=== PATIENT | female | born 1930 | race Caucasian/White ===

== ENCOUNTER 2016-12-01 07:32 | Inpatient (IN) | payer MEDICARE, OTHER ==
[2016-12-01 08:16] LABS: Hematocrit 37 % (35-47); Hemoglobin 11.9 g/dl (12.0-16.0); Mean Corpuscular HGB Conc 32 g/dl (31-36); Mean Corpuscular Hemoglobin 29 pg (27-31); Mean Corpuscular Volume 91 fL (80-97); Mean Platelet Volume 9 um3 (7.4-10.4); Red Blood Count 4.06 10^6/ul (4.0-5.4); Red Cell Distribution Width 16 % (10.5-15); White Blood Count 14.7 10^3/ul (3.5-10.8)
[2016-12-01 08:27] LABS: Albumin 3.4 g/dL (3.2-5.2); BUN/Creatinine Ratio 18.1 (8-20); Calcium 9.5 mg/dL (8.6-10.3); EGFR African American 56.7 (>60); EGFR Non-African American 44.1 (>60); Globulin 3.5 g/dL (2-4); Potassium 3.8 mmol/L (3.5-5.0); Total Bilirubin 0.7 mg/dL (0.2-1.0); Total Protein 6.9 g/dL (6.4-8.9)
[2016-12-01 08:38] LABS: FIO2 15
[2016-12-01 08:40] LABS: PCO2 Arterial 47 mmHg (35-45)
--- NOTE | 2016-12-01 08:40 | RAD ---
HISTORY: Shortness of breath COMPARISONS: None VIEWS:1: Single frontal portable view of the chest at 8:18 AM FINDINGS: LINES AND TUBES: None. CARDIOMEDIASTINAL SILHOUETTE: The cardiomediastinal silhouette is normal for portable technique. PLEURA: The costophrenic angles are sharp. No pleural abnormalities are noted. LUNG PARENCHYMA: The lung volumes are low. There is patchy alveolar opacification lung bases bilaterally ABDOMEN: The upper abdomen is clear. There is no subphrenic gas. BONES AND SOFT TISSUES: No bone or soft tissue abnormalities are noted. IMPRESSION: 1. LIMITED STUDY SECONDARY TO LOW LUNG VOLUMES. 2. BIBASILAR ATELECTASIS VERSUS CONSOLIDATION
[2016-12-01] MEDS ORDERED: Levofloxacin 750 MG IVPREMIX(* 750 MG/150 ML BAG IVPB ONE (08:56)
[2016-12-01] MEDS ORDERED: Clindamycin 300 MG IVPREMIX(* 300 MG/50 ML SDV IVPB ONE (08:58)
[2016-12-01] MEDS ORDERED: NS 0.9% 1000 ML* 1,000 ML IV SCH (10:15)
[2016-12-01 11:14] LABS: Urine Bacteria Absent (Absent); Urine Bilirubin Negative (Negative); Urine Glucose Negative (Negative); Urine Nitrite Negative (Negative)
[2016-12-01] MEDS: Clindamycin 600 MG IVPREMIX(* 600 MG/50 ML SDV IV SCH ×2 (11:30→20:18)
--- NOTE | 2016-12-01 11:50 | HP ---
HISTORY AND PHYSICAL: DATE OF ADMISSION: 12/01/16 PCP: The patient is from out of town, no local PCP. CHIEF COMPLAINT: Cough, shortness of breath. HISTORY OF PRESENT ILLNESS: Ms. Patel is an 86-year-old female with a past medical history of hypertension, GERD, lower extremity DVT, AFib on Coumadin, who presents to the hospital with cough and shortness of breath. The patient lives in [place]; however, she flew in on Thursday for a graduation. She states that she was doing well Thursday, although has been having some increasing hip pain after a fall about 1 week ago. The patient went to the family graduation yesterday, which went well. On the way home, they stopped at [employer] for some ice cream. She had a large ice-cream, half of it there and half of it later in the evening after getting back to the hotel. Shortly after this, she developed a cough that was productive of thick white mucus. She felt short of breath as well. This persisted throughout the night and she had difficulty falling asleep due to her shortness of breath and cough. She denies any recent fever, chills, nausea, vomiting, abdominal pain, dysuria, diarrhea, constipation. She denies any history of swallowing issues. She came to the hospital and was found to be tachycardic and hypoxic. O2 was titrated up to 15 L nonrebreather with O2 sats in the 80s. She was seen by Respiratory Therapy and was suctioned for thick white mucus, possibly the ice-cream she had. After suction, the patient felt subjectively better, however was still requiring a fair amount of oxygen. She states that she does wear O2 at home at night at 3 L. PAST MEDICAL HISTORY: 1. AFib. 2. Lower extremity DVT. 3. GERD. 4. Hypertension. 5. On nocturnal O2. PAST SURGICAL HISTORY: None. HOME MEDICATIONS: Home medications are currently being updated in the system. ALLERGIES: She reports allergies to PENICILLIN, SULFA, and STEROID SHOTS. FAMILY HISTORY: She states she is not aware of any family history. SOCIAL HISTORY: The patient denies any history of tobacco abuse, alcohol or drug abuse. REVIEW OF SYSTEMS: A 12-point review of systems is negative except as that noted in the HPI. PHYSICAL EXAMINATION GENERAL: The patient is an elderly female, lying in bed in mild to moderate respiratory distress. VITAL SIGNS: On admission, temperature 99.5, heart rate of 108, respiratory rate of 28, O2 saturation 80% on 5 L, right now it is about 89% on 15 L mask, blood pressure is 159/44. HEENT: Pupils equal, round, and reactive to light and accommodation. Anicteric sclerae. Moist mucous membranes. Some white phlegm noted in the posterior oropharynx. LUNGS: The patient with some rhonchi in bilateral lung moore diffusely, left greater than right. Coarse breath sounds in the left as well. CARDIOVASCULAR: Tachycardic, normal rhythm. No murmurs, gallops or rubs. ABDOMEN: Soft, nontender, nondistended. Bowel sounds positive. EXTREMITIES: The patient with some mild lower extremity edema. Sherman wraps in place. Chronic venous stasis changes. NEURO: The patient is alert and oriented x3. No focal neurological deficits. SKIN: Warm, dry and well-perfused. LABS AND DIAGNOSTICS: White blood cell count of 14.7, hematocrit of 37, platelets of 290. INR of 2.81, D-dimer less than 200. ABG - pH of 7.38, pCO2 of 47, pO2 of 51, bicarb of 26. Sodium 143, potassium 3.8, chloride of 105, carbon dioxide of 28, BUN 21, creatinine 1.16, glucose of 160, lactic acid of 1.5, LFTs within normal limits. Troponin is 0.00. CRP of 47.99. Chest x-ray, personally reviewed, shows poor study with very low lung volumes, read as possible bibasilar atelectasis versus consolidation. EKG shows sinus tachycardia, did not appreciate any ischemic changes. ASSESSMENT AND PLAN: Acute hypoxic respiratory failure secondary to aspiration pneumonia in an 86-year-old female with a past medical history of hypertension, AFib, on Coumadin, deep vein thrombosis, gastroesophageal reflux disease, and need for nocturnal oxygen. 1. Acute hypoxic respiratory failure secondary to aspiration pneumonia. The patient is currently on 15 L Oxy-Mask. We will get the patient up to the ICU. We will call Respiratory to come put the patient on Vapotherm to see if we can increase her oxygen saturations. The patient received Levaquin and clindamycin in the emergency department. We will continue the patient on clindamycin 600 mg IV every 8 hours. Wean the patient's oxygen as tolerated. Will order swallow eval. 2. Hip pain. The patient was going to go to x-ray in the emergency department. However, I would prefer to wait until she settles in the ICU and the oxygen is stabilized before moving her for a non-emergent x-ray. We will continue the patient's home pain medications for now. She has been in the wheelchair for the most part since she came to [place]. 3. Atrial fibrillation. We will continue the patient's home Cardizem and Coumadin, monitor the patient's INR. 4. Hypertension. Hold the patient's home lisinopril for now. 5. DVT prophylaxis. Warfarin. 6. Code status. Reviewed with the patient. She wishes to be a full code for now and would want to be intubated if necessary. TIME SPENT: Total time spent on this admission, 55 minutes, with over half the time spent [id number] with the patient in counseling and coordinating care. [id number]/CPS #: [id number] MTDD
--- NOTE | 2016-12-01 12:43 | ED ---
Ulysses Posadas Auryana, scribed for Mustapha Contreras MD on 12/01/16 at 0827 . Shortness of Breath - HPI Summary HPI Summary: 86 year old female BIBA with SOB starting last night. She also has a cough, but denies any chest pain. 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 Family reports that she had a recent 4 hour plane ride 2 days ago. (+) blod thinner (Warfarin). Family reports that she had a recent fall a few days ago but refused to go to the hospital even with ambulance on site that day-patient reports hip pain but denies head injury with fall. She is on nightly home O2. PMHx is significant for atrial fibrillation. - History of Current Complaint Time Seen by Provider: 12/01/16 07:40 Hx Obtained From: Patient Timing: Constant Current Severity: Mild Dyspnea At: Rest Alleviating Factors: Bronchodilators - PRINCIPAL ADMINISTRATIVE CLERK - MILDLY Associated Signs & Symptoms: Cough (Nonproductive), Wheezing Related History: Recent Trauma - family states - fall few days ago - hip pain/ issues but no head injury - denied medical care at that time - Allergy/Home Medications Allergies/Adverse Reactions: Allergies Allergy/AdvReac Type Severity Reaction Status Date / Time Penicillins Allergy Rash Verified 12/01/16 08:09 Sulfa Antibiotics Allergy Rash Verified 12/01/16 08:09 Home Medications: Home Medications Cardizem 240 mg PO DAILY 12/01/16 [History Confirmed 12/01/16] Calcium 500/Vitamin D 500-125 mg-Unit 1 mg PO DAILY 12/01/16 [History Confirmed 12/01/16] Cardizem 120 MG TAB 120 mg PO BEDTIME 12/01/16 [History Confirmed 12/01/16] Centrum 1 cap PO DAILY 12/01/16 [History Confirmed 12/01/16] Coumadin 5 mg PO BEDTIME 12/01/16 [History Confirmed 12/01/16] Lisinopril 10 mg PO DAILY 12/01/16 [History Confirmed 12/01/16] Vicodin 5-300 mg 5 - 300 mg PO Q6HR 12/01/16 [History Confirmed 12/01/16] PMH/Surg Hx/FS Hx/Imm Hx Endocrine/Hematology History: Denies: Hx Diabetes Cardiovascular History: Reports: Hx Atrial Fibrillation Denies: Hx Hypercholesterolemia, Hx Hypotension - Family History Known Family History: Positive: None - healthy family history per family - Social History Occupation: Employed Full-time Lives: Alone Alcohol Use: None Hx Substance Use: No Substance Use Type: Reports: None Hx Tobacco Use: No Smoking Status (MU): Never Smoked Tobacco Review of Systems Constitutional: Negative Eyes: Negative ENT: Negative Cardiovascular: Negative Negative: Chest Pain Positive: Shortness Of Breath, Cough Gastrointestinal: Negative Genitourinary: Negative Positive: Arthralgia - reports hip pain s/p fall a few days ago Skin: Negative Neurological: Negative Psychological: Normal All Other Systems Reviewed And Are Negative: Yes Physical Exam - Summary Physical Exam Summary: VITAL SIGNS: Reviewed. GENERAL: Patient is an elderly, seemingly fragile and ill looking female who is lying comfortable in the stretcher. Patient is is mild acute respiratory distress. HEAD AND FACE: No signs of trauma. ~No ecchymosis, hematomas or skull depressions. No sinus tenderness. EYES: PERRLA, EOMI x 2, No injected conjunctiva, no nystagmus. EARS: Hearing grossly intact. Ear canals and tympanic membranes are within normal limits. MOUTH: Oropharynx within normal limits. NECK: Supple, trachea is midline, no adenopathy, no JVD, no carotid bruit, no c- spine tenderness, neck with full ROM. CHEST: Symmetric, no tenderness at palpation LUNGS: No wheezing. Crackles in the bases. CVS: Regular rate and rhythm, S1 and S2 present, no murmurs or gallops appreciated. Distant heart sounds. ABDOMEN: Soft, non-tender. No signs of distention. No rebound no guarding, and no masses palpated. Bowel sounds are normal. EXTREMITIES: FROM in all major joints, no edema, no cyanosis or clubbing. Bilateral extremity bandages secondary to healing ulcers. No edema. NEURO: Alert and oriented x 3. No acute neurological deficits. Speech is normal and follows commands. SKIN: Dry and warm Triage Information Reviewed: Yes Vital Signs On Initial Exam: Initial Vitals Temp Pulse Resp BP Pulse Ox 99.5 F 108 28 159/44 80 12/01/16 07:43 12/01/16 07:43 12/01/16 07:43 12/01/16 07:43 12/01/16 07:43 Vital Signs Reviewed: Yes Musculoskeletal: Positive: Strength/ROM Intact Neurological: Positive: Sensory/Motor Intact, Alert, Oriented to Person Place, Time Psychiatric: Positive: Affect/Mood Appropriate Diagnostics - Vital Signs Vital Signs Temp Pulse Resp BP Pulse Ox 12/01/16 07:43 99.5 F 108 28 159/44 80 - Laboratory Lab Results: Lab Results 12/01/16 12/01/16 12/01/16 Range/Units 08:00 08:00 08:00 WBC 14.7 H (3.5-10.8) 10^3/ul RBC 4.06 (4.0-5.4) 10^6/ul Hgb 11.9 L (12.0-16.0) g/dl Hct 37 (35-47) % MCV 91 (80-97) fL MCH 29 (27-31) pg MCHC 32 (31-36) g/dl RDW 16 H (10.5-15) % Plt Count 290 (150-450) 10^3/ul MPV 9 (7.4-10.4) um3 Neut % (Auto) 84.9 H (38-83) % Lymph % (Auto) 9.2 L (25-47) % Mariposa % (Auto) 4.6 (1-9) % Eos % (Auto) 0.3 (0-6) % Baso % (Auto) 1.0 (0-2) % Absolute Neuts (auto) 12.5 H (1.5-7.7) 10^3/ul Absolute Lymphs (auto) 1.4 (1.0-4.8) 10^3/ul Absolute Monos (auto) 0.7 (0-0.8) 10^3/ul Absolute Eos (auto) 0 (0-0.6) 10^3/ul Absolute Basos (auto) 0.1 (0-0.2) 10^3/ul Absolute Nucleated RBC 0 10^3/ul Nucleated RBC % 0 INR (Anticoag Therapy) (0.89-1.11) APTT (26.0-36.3) seconds D-Dimer, Quantitative (Less Than 230) ng/mL Patient Temperature ABG pH (7.35-7.45) ABG pCO2 (35-45) mmHg ABG pO2 (80-100) mmHg ABG HCO3 (19-31) mmol/L ABG O2 Saturation (95-98) % ABG Base Excess (-2.0-2.0) Respiration Rate Ventilator Type Vent Mode FiO2 Inspiratory Time PEEP Pressure Support Pressure Control EPAP IPAP BiPAP Sodium 143 (133-145) mmol/L Potassium 3.8 (3.5-5.0) mmol/L Chloride 105 (101-111) mmol/L Carbon Dioxide 28 (22-32) mmol/L Anion Gap 10 (2-11) mmol/L BUN 21 (6-24) mg/dL Creatinine 1.16 H (0.51-0.95) mg/dL Est GFR ( Amer) 56.7 (>60) Est GFR (Non-Af Amer) 44.1 (>60) BUN/Creatinine Ratio 18.1 (8-20) Glucose 160 H (70-100) mg/dL Lactic Acid 1.2 (0.5-2.0) mmol/L Calcium 9.5 (8.6-10.3) mg/dL Total Bilirubin 0.70 (0.2-1.0) mg/dL AST 18 (13-39) U/L ALT 15 (7-52) U/L Alkaline Phosphatase 93 (34-104) U/L CK-MB (CK-2) 2.5 (0.6-6.3) ng/mL Troponin I 0.00 (<0.04) ng/mL C-Reactive Protein (< 5.00) mg/L B-Natriuretic Peptide ( - 100) pg/mL Total Protein 6.9 (6.4-8.9) g/dL Albumin 3.4 (3.2-5.2) g/dL Globulin 3.5 (2-4) g/dL Albumin/Globulin Ratio 1.0 (1-3) 12/01/16 12/01/16 12/01/16 Range/Units 08:00 08:00 08:00 WBC (3.5-10.8) 10^3/ul RBC (4.0-5.4) 10^6/ul Hgb (12.0-16.0) g/dl Hct (35-47) % MCV (80-97) fL MCH (27-31) pg MCHC (31-36) g/dl RDW (10.5-15) % Plt Count (150-450) 10^3/ul MPV (7.4-10.4) um3 Neut % (Auto) (38-83) % Lymph % (Auto) (25-47) % Mariposa % (Auto) (1-9) % Eos % (Auto) (0-6) % Baso % (Auto) (0-2) % Absolute Neuts (auto) (1.5-7.7) 10^3/ul Absolute Lymphs (auto) (1.0-4.8) 10^3/ul Absolute Monos (auto) (0-0.8) 10^3/ul Absolute Eos (auto) (0-0.6) 10^3/ul Absolute Basos (auto) (0-0.2) 10^3/ul Absolute Nucleated RBC 10^3/ul Nucleated RBC % INR (Anticoag Therapy) 2.81 H (0.89-1.11) APTT 37.3 H (26.0-36.3) seconds D-Dimer, Quantitative < 200 (Less Than 230) ng/mL Patient Temperature ABG pH (7.35-7.45) ABG pCO2 (35-45) mmHg ABG pO2 (80-100) mmHg ABG HCO3 (19-31) mmol/L ABG O2 Saturation (95-98) % ABG Base Excess (-2.0-2.0) Respiration Rate Ventilator Type Vent Mode FiO2 Inspiratory Time PEEP Pressure Support Pressure Control EPAP IPAP BiPAP Sodium (133-145) mmol/L Potassium (3.5-5.0) mmol/L Chloride (101-111) mmol/L Carbon Dioxide (22-32) mmol/L Anion Gap (2-11) mmol/L BUN (6-24) mg/dL Creatinine (0.51-0.95) mg/dL Est GFR ( Amer) (>60) Est GFR (Non-Af Amer) (>60) BUN/Creatinine Ratio (8-20) Glucose (70-100) mg/dL Lactic Acid (0.5-2.0) mmol/L Calcium (8.6-10.3) mg/dL Total Bilirubin (0.2-1.0) mg/dL AST (13-39) U/L ALT (7-52) U/L Alkaline Phosphatase (34-104) U/L CK-MB (CK-2) (0.6-6.3) ng/mL Troponin I (<0.04) ng/mL C-Reactive Protein 47.99 H (< 5.00) mg/L B-Natriuretic Peptide 78 ( - 100) pg/mL Total Protein (6.4-8.9) g/dL Albumin (3.2-5.2) g/dL Globulin (2-4) g/dL Albumin/Globulin Ratio (1-3) //17 Range/Units 08:30 WBC (3.5-10.8) 10^3/ul RBC (4.0-5.4) 10^6/ul Hgb (12.0-16.0) g/dl Hct (35-47) % MCV (80-97) fL MCH (27-31) pg MCHC (31-36) g/dl RDW (10.5-15) % Plt Count (150-450) 10^3/ul MPV (7.4-10.4) um3 Neut % (Auto) (38-83) % Lymph % (Auto) (25-47) % Mariposa % (Auto) (1-9) % Eos % (Auto) (0-6) % Baso % (Auto) (0-2) % Absolute Neuts (auto) (1.5-7.7) 10^3/ul Absolute Lymphs (auto) (1.0-4.8) 10^3/ul Absolute Monos (auto) (0-0.8) 10^3/ul Absolute Eos (auto) (0-0.6) 10^3/ul Absolute Basos (auto) (0-0.2) 10^3/ul Absolute Nucleated RBC 10^3/ul Nucleated RBC % INR (Anticoag Therapy) (0.89-1.11) APTT (26.0-36.3) seconds D-Dimer, Quantitative (Less Than 230) ng/mL Patient Temperature Not Reportable ABG pH 7.38 (7.35-7.45) ABG pCO2 47 H (35-45) mmHg ABG pO2 51 L* (80-100) mmHg ABG HCO3 26.4 (19-31) mmol/L ABG O2 Saturation 90.9 L (95-98) % ABG Base Excess 2.1 H (-2.0-2.0) Respiration Rate Not Reportable Ventilator Type Not Reportable Vent Mode Not Reportable FiO2 15 Inspiratory Time Not Reportable PEEP Not Reportable Pressure Support Not Reportable Pressure Control Not Reportable EPAP Not Reportable IPAP Not Reportable BiPAP Not Reportable Sodium (133-145) mmol/L Potassium (3.5-5.0) mmol/L Chloride (101-111) mmol/L Carbon Dioxide (22-32) mmol/L Anion Gap (2-11) mmol/L BUN (6-24) mg/dL Creatinine (0.51-0.95) mg/dL Est GFR ( Amer) (>60) Est GFR (Non-Af Amer) (>60) BUN/Creatinine Ratio (8-20) Glucose (70-100) mg/dL Lactic Acid (0.5-2.0) mmol/L Calcium (8.6-10.3) mg/dL Total Bilirubin (0.2-1.0) mg/dL AST (13-39) U/L ALT (7-52) U/L Alkaline Phosphatase (34-104) U/L CK-MB (CK-2) (0.6-6.3) ng/mL Troponin I (<0.04) ng/mL C-Reactive Protein (< 5.00) mg/L B-Natriuretic Peptide ( - 100) pg/mL Total Protein (6.4-8.9) g/dL Albumin (3.2-5.2) g/dL Globulin (2-4) g/dL Albumin/Globulin Ratio (1-3) Result Diagrams: 12/01/16 08:00 12/01/16 08:00 Lab Statement: Any lab studies that have been ordered have been reviewed, and results considered in the medical decision making process. - Radiology CXR Xray Interpretation: Positive (See Comments) - IMPRESSION: 1. LIMITED STUDY SECONDARY TO LOW LUNG VOLUMES. 2. BIBASILAR ATELECTASIS VERSUS CONSOLIDATION Radiology Interpretation Completed By: Radiologist - EKG 07:43 EKG Interpretation: sinus tachycardia at 108 BPM, no ST elevation Re-Evaluation - Re-Evaluation First Eval Re-Evaluation Time: 09:19 - discussed labs, imaging, and [place] [facility] [place]Dx - Course Course Of Treatment: 86 year old female BIBA with SOB starting last night. She also has a cough, but denies any chest pain. 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 Family reports that she had a recent 4 hour plane ride 2 days ago. (+) blod thinner (Warfarin). Family reports that she had a recent fall a few days ago but refused to go to the hospital even with ambulance on site that day-patient reports hip pain but denies head injury with fall. She is on nightly home O2. PMHx is significant for atrial fibrillation. Assessment/Plan: Test results WBC 14.7 w/o bands, INR 2.81, D-dimer <200. ABG: pH 7.38, PCO2 47, PO2 51, O2 sat 90.9. Creatinine 1.16, Glucose 160, CRP 7.9. CXR - IMPRESSION: 1. LIMITED STUDY SECONDARY TO LOW LUNG VOLUMES. 2. BIBASILAR ATELECTASIS VERSUS CONSOLIDATION. EKG - sinus tachycardia at 108 BPM , no ST elevation. ED course patient sat started at 81 therefore patient was placed on a non-rebreathing mask. Right now, O2 saturation 86-88 %. We suctioned 2 pieces of cake from her throat and right now patient is saturation 91-92 %. She reports that she is feeling better and is able to breath. I believe patient has an aspiration pneumonitis; therefore patient was placed on Levaquin and Clindamycin. Dr. Salazar consulted on admission and agrees to admit [place] [facility] [place] Salazar and I have opted not to intubate the patient at this time since she is improving at this time. - Diagnoses Differential Diagnosis/HQI/PQRI: Positive: Pulmonary Embolism, Other - Aspiration Provider Diagnoses: Aspiration pneumonitis - Physician Notifications Discussed Care of Patient With: Dr. Salazar Time Discussed With Above Provider: 09:03 - agrees with admission Instructed by Provider To: Admit As Inpatient Discharge - Discharge Plan Condition: Stable Disposition: ADMITTED TO [facility] The documentation as recorded by the Ulysses melo Auryana accurately reflects the service I personally performed and the decisions made by me, Mustapha Contreras MD.
--- NOTE | 2016-12-01 14:40 | RAD ---
HISTORY: Fall, hip pain COMPARISONS: None VIEWS: 4, frontal and crosstable lateral views of the left hip FINDINGS: BONE DENSITY: Normal. BONES: There is no displaced fracture. JOINTS: There is no arthropathy. ALIGNMENT: There is no dislocation. SOFT TISSUES: Unremarkable. OTHER FINDINGS: None. IMPRESSION: NO RADIOGRAPHIC EVIDENCE FOR HIP FRACTURE. X-RAYS MAY BE NEGATIVE WITH NONDISPLACED HIP FRACTURE, IF THERE IS PERSISTENT CLINICAL CONCERN, RECOMMEND CONSIDERATION OF MRI. IN THE SETTING OF CONTRAINDICATION TO MRI OR LIMITATION IN EMERGENT ACCESS TO MRI, CT WOULD BE SUGGESTED.
[2016-12-01] MEDS: HYDROcodone/ACETAMIN 5-325 MG* 1 TAB PO PRN ×2 (15:58→22:20)
[2016-12-01] MEDS ORDERED: Warfarin TAB(*) 5 MG PO SCH (17:00)
[2016-12-01] MEDS ORDERED: CARDIZEM 120 MG PO SCH (21:00)
[2016-12-01] MEDS: Diltiazem CD CAP* 120 MG PO SCH (22:20)
[2016-12-02] MEDS: Clindamycin 600 MG IVPREMIX(* 600 MG/50 ML SDV IV SCH ×3 (04:07→20:08)
[2016-12-02 06:10] LABS: Hematocrit 32 % (35-47); Hemoglobin 10.4 g/dl (12.0-16.0); Mean Corpuscular HGB Conc 32 g/dl (31-36); Mean Corpuscular Hemoglobin 30 pg (27-31); Mean Corpuscular Volume 91 fL (80-97); Mean Platelet Volume 10 um3 (7.4-10.4); Red Blood Count 3.53 10^6/ul (4.0-5.4); Red Cell Distribution Width 16 % (10.5-15); White Blood Count 15.8 10^3/ul (3.5-10.8)
[2016-12-02 06:23] LABS: BUN/Creatinine Ratio 18.2 (8-20); Calcium 9.4 mg/dL (8.6-10.3); EGFR African American 60.3 (>60); EGFR Non-African American 46.9 (>60); Potassium 4.7 mmol/L (3.5-5.0)
[2016-12-02] MEDS: Azithromycin IV(*) 500 MG in NS 0.9% 250 ML* 250 ML IVPB SCH (07:55)
[2016-12-02] MEDS: Diltiazem CD CAP* 240 MG PO SCH (07:55)
--- NOTE | 2016-12-02 08:08 | RAD ---
Indication: Acute hypoxic respiratory failure. Aspiration pneumonia. Comparison: December 01, 2016 Technique: Upright AP 0740 hours Report: Large body habitus limits assessment. Unchanged moderately severe elevation of the RIGHT hemidiaphragm. Associated partial atelectasis of the RIGHT lung with interval improvement. Alveolar consolidation in the LEFT mid to lower lung zone without significant volume loss is suspicious for pneumonia. Negative for cardiomegaly. Grossly unremarkable central pulmonary vasculature. IMPRESSION: Mild interval improvement in LEFT lung alveolar consolidation concerning for pneumonia.
[2016-12-02] MEDS ORDERED: DILTIAZEM 240 MG PO SCH (09:00)
[2016-12-02] MEDS ORDERED: Lisinopril TAB* 10 MG PO SCH (09:00)
--- NOTE | 2016-12-02 14:25 | PN ---
Subjective Date of Service: 12/02/16 Interval History: pt feels better. Coughing up brown colored sputum . she fell approx 1 weeks ago and bruised left leg. Objective Active Medications: Hydrocodone Bitart/Acetaminophen ([place] 5-325 Tab*) 1 tab PO Q4H PRN PRN Reason: PAIN Last Admin: 12/01/16 22:20 Dose: 1 tab Diltiazem HCl (Cardizem Cd Cap*) 120 mg PO BEDTIME [facility] Last Admin: 12/01/16 22:20 Dose: 120 mg Diltiazem HCl (Cardizem Cd Cap*) 240 mg PO DAILY [facility] Last Admin: 12/02/16 07:55 Dose: 240 mg Clindamycin HCl/Dextrose (Cleocin 600 Mg Ivpremix(*) Sdv) 600 mg in 50 mls @ 100 mls/hr IV 0330,1130,1930 [facility] Last Admin: 12/02/16 10:41 Dose: 100 mls/hr Sodium Chloride (Ns 0.9% 1000 Ml*) 1,000 mls @ 100 mls/hr IV PER RATE [facility] Azithromycin 500 mg/ Sodium (Chloride) 250 mls @ 250 mls/hr IVPB Q24H [facility] Last Admin: 12/02/16 07:55 Dose: 250 mls/hr Pharmacy Profile Note (Coumadin Daily Reminder*) 1 note FOLLOW UP 1700 [facility] Vital Signs 12/01/16 12/01/16 12/01/16 14:22 15:00 15:20 Temperature Pulse Rate 101 100 Respiratory 23 20 20 Rate Blood Pressure 140/61 122/72 (mmHg) O2 Sat by Pulse 94 92 Oximetry 12/01/16 12/01/16 12/01/16 15:26 15:30 15:59 Temperature 100.0 F Pulse Rate Respiratory 25 22 Rate Blood Pressure (mmHg) O2 Sat by Pulse Oximetry 12/01/16 12/01/16 12/01/16 16:00 16:56 17:00 Temperature Pulse Rate 100 98 Respiratory 23 20 25 Rate Blood Pressure 115/57 134/62 (mmHg) O2 Sat by Pulse 91 94 Oximetry 12/01/16 12/01/16 12/01/16 17:48 18:00 19:00 Temperature Pulse Rate 91 88 Respiratory 22 20 19 Rate Blood Pressure 134/57 112/50 (mmHg) O2 Sat by Pulse 94 93 Oximetry 12/01/16 12/01/16 12/01/16 20:00 21:00 22:00 Temperature 99.3 F Pulse Rate 92 85 Respiratory 25 18 19 Rate Blood Pressure 118/50 121/57 (mmHg) O2 Sat by Pulse 94 94 Oximetry 12/01/16 12/01/16 12/02/16 23:00 23:20 00:00 Temperature 99.2 F Pulse Rate 79 79 80 Respiratory 18 17 19 Rate Blood Pressure 110/43 (mmHg) O2 Sat by Pulse 92 92 92 Oximetry 12/02/16 12/02/16 12/02/16 00:01 01:00 02:00 Temperature Pulse Rate 81 82 80 Respiratory 21 20 18 Rate Blood Pressure 113/49 124/55 113/43 (mmHg) O2 Sat by Pulse 92 96 92 Oximetry 12/02/16 12/02/16 12/02/16 03:00 03:58 04:00 Temperature 99 F Pulse Rate 84 75 Respiratory 17 18 Rate Blood Pressure 121/44 124/46 (mmHg) O2 Sat by Pulse 96 95 Oximetry 12/02/16 12/02/16 12/02/16 05:00 06:00 07:00 Temperature Pulse Rate 69 75 67 Respiratory 17 21 16 Rate Blood Pressure 104/40 113/53 107/52 (mmHg) O2 Sat by Pulse 93 93 94 Oximetry 12/02/16 12/02/16 12/02/16 07:18 08:00 08:06 Temperature Pulse Rate 75 Respiratory 30 18 20 Rate Blood Pressure 115/49 (mmHg) O2 Sat by Pulse 95 Oximetry 12/02/16 12/02/16 12/02/16 08:07 09:00 09:16 Temperature 99.2 F Pulse Rate 74 Respiratory 19 22 Rate Blood Pressure 114/50 (mmHg) O2 Sat by Pulse 97 Oximetry 12/02/16 12/02/16 12/02/16 10:00 10:24 10:38 Temperature Pulse Rate 77 Respiratory 16 18 18 Rate Blood Pressure 103/44 (mmHg) O2 Sat by Pulse 90 Oximetry 12/02/16 12/02/16 12/02/16 11:00 11:23 11:39 Temperature 97.7 F Pulse Rate 79 Respiratory 18 22 Rate Blood Pressure 109/46 (mmHg) O2 Sat by Pulse 93 Oximetry 12/02/16 12/02/16 12/02/16 12:00 13:00 13:46 Temperature Pulse Rate 75 89 Respiratory 20 20 21 Rate Blood Pressure 112/44 115/65 (mmHg) O2 Sat by Pulse 96 88 Oximetry 12/02/16 14:00 Temperature Pulse Rate 85 Respiratory 23 Rate Blood Pressure 110/44 (mmHg) O2 Sat by Pulse 89 Oximetry Oxygen Devices in Use Now: High Flow Nasal Cannula - ar 15l Appearance: 86 yo F in nAd, AAOx3 Eyes: No Scleral Icterus, PERRLA Ears/Nose/Mouth/Throat: NL Teeth, Lips, Gums, Mucous Membranes Moist Neck: NL Appearance and Movements; NL JVP, Trachea Midline Respiratory: Symmetrical Chest Expansion and Respiratory Effort, Clear to Auscultation, - - crackles b/l mid lobes Cardiovascular: NL Sounds; No Murmurs; No JVD, RRR Abdominal: NL Sounds; No Tenderness; No Distention, No Hepatosplenomegaly Lymphatic: No Cervical Adenopathy Extremities: No Clubbing, Cyanosis, - - chfonic venous staisis skin changes and edema on distal b/l LE's, chronic appearing erythema on lateral left knee where a ruptured blister was noted yesterday. left thigh ecchymosis Skin: No Nodules or Sclerosis, - - see above Neurological: Alert and Oriented x 3, NL Muscle Strength and Tone Result Diagrams: 12/02/16 05:53 12/02/16 05:53 Additional Lab and Data: Lab Results 12/01/16 12/01/16 12/01/16 Range/Units 08:00 08:00 08:00 WBC 14.7 H (3.5-10.8) 10^3/ul RBC 4.06 (4.0-5.4) 10^6/ul Hgb 11.9 L (12.0-16.0) g/dl Hct 37 (35-47) % MCV 91 (80-97) fL MCH 29 (27-31) pg MCHC 32 (31-36) g/dl RDW 16 H (10.5-15) % Plt Count 290 (150-450) 10^3/ul MPV 9 (7.4-10.4) um3 Neut % (Auto) 84.9 H (38-83) % Lymph % (Auto) 9.2 L (25-47) % [place] % (Auto) 4.6 (1-9) % Eos % (Auto) 0.3 (0-6) % Baso % (Auto) 1.0 (0-2) % Absolute Neuts (auto) 12.5 H (1.5-7.7) 10^3/ul Absolute Lymphs (auto) 1.4 (1.0-4.8) 10^3/ul Absolute Monos (auto) 0.7 (0-0.8) 10^3/ul Absolute Eos (auto) 0 (0-0.6) 10^3/ul Absolute Basos (auto) 0.1 (0-0.2) 10^3/ul Absolute Nucleated RBC 0 10^3/ul Nucleated RBC % 0 INR (Anticoag Therapy) (0.89-1.11) APTT (26.0-36.3) seconds D-Dimer, Quantitative (Less Than 230) ng/mL Patient Temperature ABG pH (7.35-7.45) ABG pCO2 (35-45) mmHg ABG pO2 (80-100) mmHg ABG HCO3 (19-31) mmol/L ABG O2 Saturation (95-98) % ABG Base Excess (-2.0-2.0) Respiration Rate Ventilator Type Vent Mode FiO2 Inspiratory Time PEEP Pressure Support Pressure Control EPAP IPAP BiPAP Sodium 143 (133-145) mmol/L Potassium 3.8 (3.5-5.0) mmol/L Chloride 105 (101-111) mmol/L Carbon Dioxide 28 (22-32) mmol/L Anion Gap 10 (2-11) mmol/L BUN 21 (6-24) mg/dL Creatinine 1.16 H (0.51-0.95) mg/dL Est GFR ( Amer) 56.7 (>60) Est GFR (Non-Af Amer) 44.1 (>60) BUN/Creatinine Ratio 18.1 (8-20) Glucose 160 H (70-100) mg/dL Lactic Acid 1.2 (0.5-2.0) mmol/L Calcium 9.5 (8.6-10.3) mg/dL Total Bilirubin 0.70 (0.2-1.0) mg/dL AST 18 (13-39) U/L ALT 15 (7-52) U/L Alkaline Phosphatase 93 (34-104) U/L CK-MB (CK-2) 2.5 (0.6-6.3) ng/mL Troponin I 0.00 (<0.04) ng/mL C-Reactive Protein (< 5.00) mg/L B-Natriuretic Peptide ( - 100) pg/mL Total Protein 6.9 (6.4-8.9) g/dL Albumin 3.4 (3.2-5.2) g/dL Globulin 3.5 (2-4) g/dL Albumin/Globulin Ratio 1.0 (1-3) 12/01/16 12/01/16 12/01/16 Range/Units 08:00 08:00 08:00 WBC (3.5-10.8) 10^3/ul RBC (4.0-5.4) 10^6/ul Hgb (12.0-16.0) g/dl Hct (35-47) % MCV (80-97) fL MCH (27-31) pg MCHC (31-36) g/dl RDW (10.5-15) % Plt Count (150-450) 10^3/ul MPV (7.4-10.4) um3 Neut % (Auto) (38-83) % Lymph % (Auto) (25-47) % [place] % (Auto) (1-9) % Eos % (Auto) (0-6) % Baso % (Auto) (0-2) % Absolute Neuts (auto) (1.5-7.7) 10^3/ul Absolute Lymphs (auto) (1.0-4.8) 10^3/ul Absolute Monos (auto) (0-0.8) 10^3/ul Absolute Eos (auto) (0-0.6) 10^3/ul Absolute Basos (auto) (0-0.2) 10^3/ul Absolute Nucleated RBC 10^3/ul Nucleated RBC % INR (Anticoag Therapy) 2.81 H (0.89-1.11) APTT 37.3 H (26.0-36.3) seconds D-Dimer, Quantitative < 200 (Less Than 230) ng/mL Patient Temperature ABG pH (7.35-7.45) ABG pCO2 (35-45) mmHg ABG pO2 (80-100) mmHg ABG HCO3 (19-31) mmol/L ABG O2 Saturation (95-98) % ABG Base Excess (-2.0-2.0) Respiration Rate Ventilator Type Vent Mode FiO2 Inspiratory Time PEEP Pressure Support Pressure Control EPAP IPAP BiPAP Sodium (133-145) mmol/L Potassium (3.5-5.0) mmol/L Chloride (101-111) mmol/L Carbon Dioxide (22-32) mmol/L Anion Gap (2-11) mmol/L BUN (6-24) mg/dL Creatinine (0.51-0.95) mg/dL Est GFR ( Amer) (>60) Est GFR (Non-Af Amer) (>60) BUN/Creatinine Ratio (8-20) Glucose (70-100) mg/dL Lactic Acid (0.5-2.0) mmol/L Calcium (8.6-10.3) mg/dL Total Bilirubin (0.2-1.0) mg/dL AST (13-39) U/L ALT (7-52) U/L Alkaline Phosphatase (34-104) U/L CK-MB (CK-2) (0.6-6.3) ng/mL Troponin I (<0.04) ng/mL C-Reactive Protein 47.99 H (< 5.00) mg/L B-Natriuretic Peptide 78 ( - 100) pg/mL Total Protein (6.4-8.9) g/dL Albumin (3.2-5.2) g/dL Globulin (2-4) g/dL Albumin/Globulin Ratio (1-3) //17 Range/Units 08:30 WBC (3.5-10.8) 10^3/ul RBC (4.0-5.4) 10^6/ul Hgb (12.0-16.0) g/dl Hct (35-47) % MCV (80-97) fL MCH (27-31) pg MCHC (31-36) g/dl RDW (10.5-15) % Plt Count (150-450) 10^3/ul MPV (7.4-10.4) um3 Neut % (Auto) (38-83) % Lymph % (Auto) (25-47) % [place] % (Auto) (1-9) % Eos % (Auto) (0-6) % Baso % (Auto) (0-2) % Absolute Neuts (auto) (1.5-7.7) 10^3/ul Absolute Lymphs (auto) (1.0-4.8) 10^3/ul Absolute Monos (auto) (0-0.8) 10^3/ul Absolute Eos (auto) (0-0.6) 10^3/ul Absolute Basos (auto) (0-0.2) 10^3/ul Absolute Nucleated RBC 10^3/ul Nucleated RBC % INR (Anticoag Therapy) (0.89-1.11) APTT (26.0-36.3) seconds D-Dimer, Quantitative (Less Than 230) ng/mL Patient Temperature Not Reportable ABG pH 7.38 (7.35-7.45) ABG pCO2 47 H (35-45) mmHg ABG pO2 51 L* (80-100) mmHg ABG HCO3 26.4 (19-31) mmol/L ABG O2 Saturation 90.9 L (95-98) % ABG Base Excess 2.1 H (-2.0-2.0) Respiration Rate Not Reportable Ventilator Type Not Reportable Vent Mode Not Reportable FiO2 15 Inspiratory Time Not Reportable PEEP Not Reportable Pressure Support Not Reportable Pressure Control Not Reportable EPAP Not Reportable IPAP Not Reportable BiPAP Not Reportable Sodium (133-145) mmol/L Potassium (3.5-5.0) mmol/L Chloride (101-111) mmol/L Carbon Dioxide (22-32) mmol/L Anion Gap (2-11) mmol/L BUN (6-24) mg/dL Creatinine (0.51-0.95) mg/dL Est GFR ( Amer) (>60) Est GFR (Non-Af Amer) (>60) BUN/Creatinine Ratio (8-20) Glucose (70-100) mg/dL Lactic Acid (0.5-2.0) mmol/L Calcium (8.6-10.3) mg/dL Total Bilirubin (0.2-1.0) mg/dL AST (13-39) U/L ALT (7-52) U/L Alkaline Phosphatase (34-104) U/L CK-MB (CK-2) (0.6-6.3) ng/mL Troponin I (<0.04) ng/mL C-Reactive Protein (< 5.00) mg/L B-Natriuretic Peptide ( - 100) pg/mL Total Protein (6.4-8.9) g/dL Albumin (3.2-5.2) g/dL Globulin (2-4) g/dL Albumin/Globulin Ratio (1-3) Microbiology and Other Data: Microbiology 12/02/16 10:30 Legionella Urinary Antigen - Final Urine Negative Legionella Streptococcus pneumoniae Ag Screen - Final Negative S. pneumo Antigen 12/01/16 11:45 Nasal Screen MRSA (PCR)([facility]UN[facility]) - Final Nasal Mrsa Negative Assess/Plan/Problems-Billing Assessment: 86 yo f with h/o PAF, chronic venous stasis, scoliosis and restrictive lung disease (on nighttime 02 T 3L) presented with aspiration - Patient Problems (1) Acute respiratory failure Comment: with hypoxemia due to aspiration pneumonia cont Clindamycin, added Azithro for atypical coverage in pt who recently traveled hypoxia improving. Pt passed swallow eval (2) Atrial fibrillation Comment: paroxysmal cont Cardizem CD (3) DVT prophylaxis Comment: INR>5 today, Coumadin on hold (4) Left leg injury Comment: s/p fall 1 week prior to admission. no fx on XRay cont PT (5) Restrictive airway disease Comment: due to scoliosis, on nightime 02 at 3 l at home Likely will need 02 continuously at d/c
[2016-12-02] MEDS: Diltiazem CD CAP* 120 MG PO SCH (20:12)
[2016-12-02] MEDS: HYDROcodone/ACETAMIN 5-325 MG* 1 TAB PO PRN (22:42)
[2016-12-03] MEDS: Clindamycin 600 MG IVPREMIX(* 600 MG/50 ML SDV IV SCH ×2 (03:03→20:07)
[2016-12-03 06:13] LABS: Hematocrit 31 % (35-47); Hemoglobin 9.9 g/dl (12.0-16.0); Mean Corpuscular HGB Conc 32 g/dl (31-36); Mean Corpuscular Hemoglobin 29 pg (27-31); Mean Corpuscular Volume 91 fL (80-97); Mean Platelet Volume 9 um3 (7.4-10.4); Red Blood Count 3.39 10^6/ul (4.0-5.4); Red Cell Distribution Width 15 % (10.5-15); White Blood Count 14.5 10^3/ul (3.5-10.8)
[2016-12-03] MEDS: Azithromycin IV(*) 500 MG in NS 0.9% 250 ML* 250 ML IVPB SCH (09:50)
[2016-12-03] MEDS: Diltiazem CD CAP* 240 MG PO SCH (09:50)
[2016-12-03] MEDS ORDERED: Phytonadione Oral Solution* 5 MG/25 ML UDC PO ONE (09:59)
--- NOTE | 2016-12-03 15:35 | PN ---
Subjective Date of Service: 12/03/16 Interval History: pt was back on Vapotherm this AM Objective Active Medications: Hydrocodone Bitart/Acetaminophen ([place] 5-325 Tab*) 1 tab PO Q4H PRN PRN Reason: PAIN Last Admin: 12/02/16 22:42 Dose: 1 tab Diltiazem HCl (Cardizem Cd Cap*) 120 mg PO BEDTIME [facility] Last Admin: 12/02/16 20:12 Dose: 120 mg Diltiazem HCl (Cardizem Cd Cap*) 240 mg PO DAILY [facility] Last Admin: 12/03/16 09:50 Dose: 240 mg Clindamycin HCl/Dextrose (Cleocin 600 Mg Ivpremix(*) Sdv) 600 mg in 50 mls @ 100 mls/hr IV 0330,1130,1930 [facility] Last Admin: 12/03/16 03:03 Dose: 100 mls/hr Azithromycin 500 mg/ Sodium (Chloride) 250 mls @ 250 mls/hr IVPB Q24H [facility] Last Admin: 12/03/16 09:50 Dose: 250 mls/hr Pharmacy Profile Note (Coumadin Daily Reminder*) 1 note FOLLOW UP 1700 [facility] Last Admin: 12/02/16 16:03 Dose: 1 note Vital Signs 12/02/16 12/02/16 12/02/16 15:49 16:00 16:06 Temperature 98.1 F Pulse Rate Respiratory 20 20 Rate Blood Pressure 126/47 (mmHg) O2 Sat by Pulse Oximetry 12/02/16 12/02/16 12/02/16 17:00 17:11 17:45 Temperature Pulse Rate Respiratory 24 21 Rate Blood Pressure 116/42 (mmHg) O2 Sat by Pulse Oximetry 12/02/16 12/02/16 12/02/16 18:00 19:00 19:10 Temperature Pulse Rate 75 81 Respiratory 19 21 18 Rate Blood Pressure 122/54 111/46 (mmHg) O2 Sat by Pulse 90 87 Oximetry 12/02/16 12/02/16 12/02/16 20:00 20:01 21:00 Temperature 99.2 F Pulse Rate 88 86 81 Respiratory 28 23 17 Rate Blood Pressure 129/53 (mmHg) O2 Sat by Pulse 86 87 90 Oximetry 12/02/16 12/02/16 12/02/16 21:02 22:00 22:40 Temperature Pulse Rate 84 84 Respiratory 22 21 19 Rate Blood Pressure 108/52 124/50 (mmHg) O2 Sat by Pulse 91 89 Oximetry 12/02/16 12/02/16 12/03/16 23:00 23:38 00:00 Temperature 99.5 F Pulse Rate 86 79 Respiratory 21 18 Rate Blood Pressure 131/58 (mmHg) O2 Sat by Pulse 90 91 Oximetry 12/03/16 12/03/16 12/03/16 00:01 00:07 00:30 Temperature Pulse Rate 74 72 66 Respiratory 18 18 17 Rate Blood Pressure 107/46 (mmHg) O2 Sat by Pulse 89 88 89 Oximetry 12/03/16 12/03/16 12/03/16 00:53 01:00 01:30 Temperature Pulse Rate 68 66 Respiratory 17 18 17 Rate Blood Pressure 99/46 (mmHg) O2 Sat by Pulse 90 91 Oximetry 12/03/16 12/03/16 12/03/16 02:00 02:30 03:00 Temperature Pulse Rate 67 67 86 Respiratory 17 17 20 Rate Blood Pressure 102/45 99/48 (mmHg) O2 Sat by Pulse 90 89 85 Oximetry 12/03/16 12/03/16 12/03/16 03:22 03:30 03:51 Temperature 99.2 F Pulse Rate 73 Respiratory 17 19 Rate Blood Pressure (mmHg) O2 Sat by Pulse 90 Oximetry 12/03/16 12/03/16 12/03/16 04:00 04:30 04:58 Temperature Pulse Rate 68 65 66 Respiratory 17 17 17 Rate Blood Pressure 105/44 (mmHg) O2 Sat by Pulse 91 91 90 Oximetry 12/03/16 12/03/16 12/03/16 05:30 05:51 06:00 Temperature Pulse Rate 72 74 Respiratory 18 18 20 Rate Blood Pressure 112/46 (mmHg) O2 Sat by Pulse 92 89 Oximetry 12/03/16 12/03/16 12/03/16 06:15 06:30 06:45 Temperature Pulse Rate 71 66 65 Respiratory 15 19 19 Rate Blood Pressure (mmHg) O2 Sat by Pulse 93 Oximetry 12/03/16 12/03/16 12/03/16 06:46 07:00 07:15 Temperature Pulse Rate 67 66 Respiratory 18 18 17 Rate Blood Pressure 107/44 (mmHg) O2 Sat by Pulse 86 86 Oximetry 12/03/16 12/03/16 12/03/16 07:30 07:45 08:00 Temperature 99.2 F Pulse Rate 73 66 65 Respiratory 22 20 16 Rate Blood Pressure 101/47 (mmHg) O2 Sat by Pulse 92 86 87 Oximetry 12/03/16 12/03/16 12/03/16 08:15 08:30 08:45 Temperature Pulse Rate 66 85 83 Respiratory 19 23 25 Rate Blood Pressure (mmHg) O2 Sat by Pulse 86 86 90 Oximetry 12/03/16 12/03/16 12/03/16 09:00 09:01 09:15 Temperature Pulse Rate 80 86 83 Respiratory 17 19 24 Rate Blood Pressure 106/69 (mmHg) O2 Sat by Pulse 92 91 94 Oximetry 12/03/16 12/03/16 12/03/16 09:30 09:45 10:00 Temperature Pulse Rate 75 73 77 Respiratory 19 22 22 Rate Blood Pressure 120/60 (mmHg) O2 Sat by Pulse 95 96 94 Oximetry 12/03/16 12/03/16 12/03/16 10:15 10:30 10:45 Temperature Pulse Rate 79 82 80 Respiratory 26 21 23 Rate Blood Pressure (mmHg) O2 Sat by Pulse 95 97 94 Oximetry 12/03/16 12/03/16 12/03/16 11:00 11:15 11:30 Temperature Pulse Rate 74 85 74 Respiratory 21 20 25 Rate Blood Pressure (mmHg) O2 Sat by Pulse 94 93 95 Oximetry 12/03/16 12/03/16 12/03/16 11:35 11:45 12:00 Temperature 100.3 F Pulse Rate 80 77 Respiratory 22 21 Rate Blood Pressure (mmHg) O2 Sat by Pulse 94 96 Oximetry 12/03/16 12/03/16 12/03/16 12:15 12:17 12:30 Temperature Pulse Rate 73 87 70 Respiratory 19 25 19 Rate Blood Pressure 111/55 (mmHg) O2 Sat by Pulse 96 95 97 Oximetry 12/03/16 12/03/16 12:45 13:00 Temperature Pulse Rate 78 67 Respiratory 25 22 Rate Blood Pressure (mmHg) O2 Sat by Pulse 94 94 Oximetry Oxygen Devices in Use Now: High Flow Nasal Cannula - Vapotherm at 25L Appearance: 86 yo F in NAD, AAOx3 Eyes: No Scleral Icterus, PERRLA Ears/Nose/Mouth/Throat: NL Teeth, Lips, Gums, Mucous Membranes Moist Neck: NL Appearance and Movements; NL JVP, Trachea Midline Respiratory: Symmetrical Chest Expansion and Respiratory Effort, - - RLL crackles Cardiovascular: NL Sounds; No Murmurs; No JVD, RRR Abdominal: NL Sounds; No Tenderness; No Distention Lymphatic: No Cervical Adenopathy Extremities: No Clubbing, Cyanosis, - - +1 pedal edema , venous stasis changed on b/l LE's Skin: No Nodules or Sclerosis Neurological: Alert and Oriented x 3, NL Muscle Strength and Tone Result Diagrams: 12/03/16 05:55 12/02/16 05:53 Additional Lab and Data: Lab Results 12/01/16 12/01/16 12/01/16 Range/Units 08:00 08:00 08:00 WBC 14.7 H (3.5-10.8) 10^3/ul RBC 4.06 (4.0-5.4) 10^6/ul Hgb 11.9 L (12.0-16.0) g/dl Hct 37 (35-47) % MCV 91 (80-97) fL MCH 29 (27-31) pg MCHC 32 (31-36) g/dl RDW 16 H (10.5-15) % Plt Count 290 (150-450) 10^3/ul MPV 9 (7.4-10.4) um3 Neut % (Auto) 84.9 H (38-83) % Lymph % (Auto) 9.2 L (25-47) % [place] % (Auto) 4.6 (1-9) % Eos % (Auto) 0.3 (0-6) % Baso % (Auto) 1.0 (0-2) % Absolute Neuts (auto) 12.5 H (1.5-7.7) 10^3/ul Absolute Lymphs (auto) 1.4 (1.0-4.8) 10^3/ul Absolute Monos (auto) 0.7 (0-0.8) 10^3/ul Absolute Eos (auto) 0 (0-0.6) 10^3/ul Absolute Basos (auto) 0.1 (0-0.2) 10^3/ul Absolute Nucleated RBC 0 10^3/ul Nucleated RBC % 0 INR (Anticoag Therapy) (0.89-1.11) APTT (26.0-36.3) seconds D-Dimer, Quantitative (Less Than 230) ng/mL Patient Temperature ABG pH (7.35-7.45) ABG pCO2 (35-45) mmHg ABG pO2 (80-100) mmHg ABG HCO3 (19-31) mmol/L ABG O2 Saturation (95-98) % ABG Base Excess (-2.0-2.0) Respiration Rate Ventilator Type Vent Mode FiO2 Inspiratory Time PEEP Pressure Support Pressure Control EPAP IPAP BiPAP Sodium 143 (133-145) mmol/L Potassium 3.8 (3.5-5.0) mmol/L Chloride 105 (101-111) mmol/L Carbon Dioxide 28 (22-32) mmol/L Anion Gap 10 (2-11) mmol/L BUN 21 (6-24) mg/dL Creatinine 1.16 H (0.51-0.95) mg/dL Est GFR ( Amer) 56.7 (>60) Est GFR (Non-Af Amer) 44.1 (>60) BUN/Creatinine Ratio 18.1 (8-20) Glucose 160 H (70-100) mg/dL Lactic Acid 1.2 (0.5-2.0) mmol/L Calcium 9.5 (8.6-10.3) mg/dL Total Bilirubin 0.70 (0.2-1.0) mg/dL AST 18 (13-39) U/L ALT 15 (7-52) U/L Alkaline Phosphatase 93 (34-104) U/L CK-MB (CK-2) 2.5 (0.6-6.3) ng/mL Troponin I 0.00 (<0.04) ng/mL C-Reactive Protein (< 5.00) mg/L B-Natriuretic Peptide ( - 100) pg/mL Total Protein 6.9 (6.4-8.9) g/dL Albumin 3.4 (3.2-5.2) g/dL Globulin 3.5 (2-4) g/dL Albumin/Globulin Ratio 1.0 (1-3) 12/01/16 12/01/16 12/01/16 Range/Units 08:00 08:00 08:00 WBC (3.5-10.8) 10^3/ul RBC (4.0-5.4) 10^6/ul Hgb (12.0-16.0) g/dl Hct (35-47) % MCV (80-97) fL MCH (27-31) pg MCHC (31-36) g/dl RDW (10.5-15) % Plt Count (150-450) 10^3/ul MPV (7.4-10.4) um3 Neut % (Auto) (38-83) % Lymph % (Auto) (25-47) % [place] % (Auto) (1-9) % Eos % (Auto) (0-6) % Baso % (Auto) (0-2) % Absolute Neuts (auto) (1.5-7.7) 10^3/ul Absolute Lymphs (auto) (1.0-4.8) 10^3/ul Absolute Monos (auto) (0-0.8) 10^3/ul Absolute Eos (auto) (0-0.6) 10^3/ul Absolute Basos (auto) (0-0.2) 10^3/ul Absolute Nucleated RBC 10^3/ul Nucleated RBC % INR (Anticoag Therapy) 2.81 H (0.89-1.11) APTT 37.3 H (26.0-36.3) seconds D-Dimer, Quantitative < 200 (Less Than 230) ng/mL Patient Temperature ABG pH (7.35-7.45) ABG pCO2 (35-45) mmHg ABG pO2 (80-100) mmHg ABG HCO3 (19-31) mmol/L ABG O2 Saturation (95-98) % ABG Base Excess (-2.0-2.0) Respiration Rate Ventilator Type Vent Mode FiO2 Inspiratory Time PEEP Pressure Support Pressure Control EPAP IPAP BiPAP Sodium (133-145) mmol/L Potassium (3.5-5.0) mmol/L Chloride (101-111) mmol/L Carbon Dioxide (22-32) mmol/L Anion Gap (2-11) mmol/L BUN (6-24) mg/dL Creatinine (0.51-0.95) mg/dL Est GFR ( Amer) (>60) Est GFR (Non-Af Amer) (>60) BUN/Creatinine Ratio (8-20) Glucose (70-100) mg/dL Lactic Acid (0.5-2.0) mmol/L Calcium (8.6-10.3) mg/dL Total Bilirubin (0.2-1.0) mg/dL AST (13-39) U/L ALT (7-52) U/L Alkaline Phosphatase (34-104) U/L CK-MB (CK-2) (0.6-6.3) ng/mL Troponin I (<0.04) ng/mL C-Reactive Protein 47.99 H (< 5.00) mg/L B-Natriuretic Peptide 78 ( - 100) pg/mL Total Protein (6.4-8.9) g/dL Albumin (3.2-5.2) g/dL Globulin (2-4) g/dL Albumin/Globulin Ratio (1-3) 05/22/17 Range/Units 08:30 WBC (3.5-10.8) 10^3/ul RBC (4.0-5.4) 10^6/ul Hgb (12.0-16.0) g/dl Hct (35-47) % MCV (80-97) fL MCH (27-31) pg MCHC (31-36) g/dl RDW (10.5-15) % Plt Count (150-450) 10^3/ul MPV (7.4-10.4) um3 Neut % (Auto) (38-83) % Lymph % (Auto) (25-47) % [place] % (Auto) (1-9) % Eos % (Auto) (0-6) % Baso % (Auto) (0-2) % Absolute Neuts (auto) (1.5-7.7) 10^3/ul Absolute Lymphs (auto) (1.0-4.8) 10^3/ul Absolute Monos (auto) (0-0.8) 10^3/ul Absolute Eos (auto) (0-0.6) 10^3/ul Absolute Basos (auto) (0-0.2) 10^3/ul Absolute Nucleated RBC 10^3/ul Nucleated RBC % INR (Anticoag Therapy) (0.89-1.11) APTT (26.0-36.3) seconds D-Dimer, Quantitative (Less Than 230) ng/mL Patient Temperature Not Reportable ABG pH 7.38 (7.35-7.45) ABG pCO2 47 H (35-45) mmHg ABG pO2 51 L* (80-100) mmHg ABG HCO3 26.4 (19-31) mmol/L ABG O2 Saturation 90.9 L (95-98) % ABG Base Excess 2.1 H (-2.0-2.0) Respiration Rate Not Reportable Ventilator Type Not Reportable Vent Mode Not Reportable FiO2 15 Inspiratory Time Not Reportable PEEP Not Reportable Pressure Support Not Reportable Pressure Control Not Reportable EPAP Not Reportable IPAP Not Reportable BiPAP Not Reportable Sodium (133-145) mmol/L Potassium (3.5-5.0) mmol/L Chloride (101-111) mmol/L Carbon Dioxide (22-32) mmol/L Anion Gap (2-11) mmol/L BUN (6-24) mg/dL Creatinine (0.51-0.95) mg/dL Est GFR ( Amer) (>60) Est GFR (Non-Af Amer) (>60) BUN/Creatinine Ratio (8-20) Glucose (70-100) mg/dL Lactic Acid (0.5-2.0) mmol/L Calcium (8.6-10.3) mg/dL Total Bilirubin (0.2-1.0) mg/dL AST (13-39) U/L ALT (7-52) U/L Alkaline Phosphatase (34-104) U/L CK-MB (CK-2) (0.6-6.3) ng/mL Troponin I (<0.04) ng/mL C-Reactive Protein (< 5.00) mg/L B-Natriuretic Peptide ( - 100) pg/mL Total Protein (6.4-8.9) g/dL Albumin (3.2-5.2) g/dL Globulin (2-4) g/dL Albumin/Globulin Ratio (1-3) Microbiology and Other Data: Microbiology 12/02/16 10:30 Legionella Urinary Antigen - Final Urine Negative Legionella Streptococcus pneumoniae Ag Screen - Final Negative S. pneumo Antigen 12/01/16 11:45 Nasal Screen MRSA (PCR)([facility]) - Final Nasal Mrsa Negative Assess/Plan/Problems-Billing Assessment: 86 yo f with h/o PAF, chronic venous stasis, scoliosis and restrictive lung disease (on nighttime 02 T 3L) presented with aspiration - Patient Problems (1) Acute respiratory failure Comment: with hypoxemia due to aspiration pneumonia cont Clindamycin, added Azithro for atypical coverage in pt who recently travelled(Legionella and Strep pneumoatg neg) hypoxia still persists (2) Atrial fibrillation Comment: paroxysmal cont Cardizem CD (3) DVT prophylaxis Comment: INR>9 today, Coumadin on hold. will tx with Vit K 2.5 mg PO x1. (4) Left leg injury Comment: s/p fall 1 week prior to admission. no fx on XRay cont PT (5) Restrictive airway disease Comment: due to scoliosis, on nightime 02 at 3 l at home Likely will need 02 continuously at d/c Status and Disposition: inpatient
[2016-12-03] MEDS: HYDROcodone/ACETAMIN 5-325 MG* 1 TAB PO PRN (22:05)
[2016-12-03] MEDS: Diltiazem CD CAP* 120 MG PO SCH (22:05)
[2016-12-04] MEDS: Clindamycin 600 MG IVPREMIX(* 600 MG/50 ML SDV IV SCH ×4 (03:37→19:31)
[2016-12-04 05:24] LABS: Hematocrit 32 % (35-47); Hemoglobin 10.4 g/dl (12.0-16.0); Mean Corpuscular HGB Conc 33 g/dl (31-36); Mean Corpuscular Hemoglobin 30 pg (27-31); Mean Corpuscular Volume 90 fL (80-97); Mean Platelet Volume 10 um3 (7.4-10.4); Red Blood Count 3.51 10^6/ul (4.0-5.4); Red Cell Distribution Width 15 % (10.5-15); White Blood Count 12.5 10^3/ul (3.5-10.8)
[2016-12-04 05:36] LABS: BUN/Creatinine Ratio 29.1 (8-20); Blood Urea Nitrogen 32 mg/dL (6-24); CO2 Carbon Dioxide 26 mmol/L (22-32); Calcium 9.1 mg/dL (8.6-10.3); Chloride 103 mmol/L (101-111); EGFR African American 60.3 (>60); EGFR Non-African American 46.9 (>60); Glucose 83 mg/dL (70-100); Sodium 136 mmol/L (133-145)
[2016-12-04] MEDS ORDERED: Albuterol/Ipratropium NEB.SOL* Albuterol 2.5 MG/Ipratropium 0.5 MG 3 ML INH SCH (10:00)
[2016-12-04] MEDS: Azithromycin IV(*) 500 MG in NS 0.9% 250 ML* 250 ML IVPB SCH (10:10)
[2016-12-04] MEDS: Diltiazem CD CAP* 240 MG PO SCH (10:10)
[2016-12-04] MEDS ORDERED: Albuterol/Ipratropium NEB.SOL* Albuterol 2.5 MG/Ipratropium 0.5 MG 3 ML INH PRN (12:49)
[2016-12-04] MEDS: Warfarin TAB(*) 5 MG PO SCH (17:33)
[2016-12-04] MEDS: Diltiazem CD CAP* 120 MG PO SCH (22:08)
[2016-12-04] MEDS: HYDROcodone/ACETAMIN 5-325 MG* 1 TAB PO PRN (23:25)
[2016-12-05] MEDS ORDERED: Metoprolol Tartrate IV* 1 MG/ML 5 ML VIAL IV ONE (00:15)
[2016-12-05] MEDS: Clindamycin 600 MG IVPREMIX(* 600 MG/50 ML SDV IV SCH (03:13)
[2016-12-05] MEDS: HYDROcodone/ACETAMIN 5-325 MG* 1 TAB PO PRN (03:13)
[2016-12-05] MEDS: Diltiazem CD CAP* 240 MG PO SCH (08:56)
[2016-12-05] MEDS ORDERED: Azithromycin TAB* 250 MG PO SCH (09:00)
[2016-12-05] MEDS: Clindamycin CAP* 150 MG PO SCH ×2 (13:03→17:20)
--- NOTE | 2016-12-05 15:10 | PN ---
Subjective Date of Service: 12/05/16 Interval History: Pt feels better every day. Had a short run of A. fib last night, converted after a dose of beta nader Objective Active Medications: Hydrocodone Bitart/Acetaminophen ([place] 5-325 Tab*) 1 tab PO Q4H PRN PRN Reason: PAIN Last Admin: 12/05/16 03:13 Dose: 1 tab Albuterol/Ipratropium (Duoneb (Albuterol 2.5 Mg/Ipratropium 0.5 Mg)) 1 neb INH Q4H PRN PRN Reason: SOB/WHEEZING Azithromycin (Zithromax Tab*) 250 mg PO DAILY [facility] Stop: 12/05/16 23:59 Last Admin: 12/05/16 08:56 Dose: 250 mg Clindamycin HCl (Cleocin Cap*) 300 mg PO Q6HR [facility] Last Admin: 12/05/16 13:03 Dose: 300 mg Diltiazem HCl (Cardizem Cd Cap*) 120 mg PO BEDTIME [facility] Last Admin: 12/04/16 22:08 Dose: 120 mg Diltiazem HCl (Cardizem Cd Cap*) 240 mg PO DAILY [facility] Last Admin: 12/05/16 08:56 Dose: 240 mg Pharmacy Profile Note (Coumadin Daily Reminder*) 1 note FOLLOW UP 1700 [facility] Last Admin: 12/04/16 17:33 Dose: 1 note Warfarin Sodium (Coumadin Tab(*)) 5 mg PO DAILY@1700 [facility] PRN Reason: Protocol Last Admin: 12/04/16 17:33 Dose: 5 mg Vital Signs 12/04/16 12/04/16 12/04/16 15:15 15:30 15:35 Temperature 99.1 F Pulse Rate 77 Respiratory 31 25 Rate Blood Pressure 126/45 (mmHg) O2 Sat by Pulse 84 Oximetry 12/04/16 12/04/16 12/04/16 15:45 16:00 16:15 Temperature Pulse Rate 77 76 75 Respiratory 30 23 21 Rate Blood Pressure 119/43 (mmHg) O2 Sat by Pulse 89 86 86 Oximetry 12/04/16 12/04/16 12/04/16 16:30 16:45 17:00 Temperature Pulse Rate 80 80 80 Respiratory 27 27 26 Rate Blood Pressure 114/44 (mmHg) O2 Sat by Pulse 85 86 88 Oximetry 12/04/16 12/04/1617 17:15 17:30 17:45 Temperature Pulse Rate 78 81 89 Respiratory 27 22 25 Rate Blood Pressure (mmHg) O2 Sat by Pulse 90 90 89 Oximetry 12/04/16 12/04/16 12/04/16 18:00 18:15 18:30 Temperature Pulse Rate 86 87 Respiratory 18 25 25 Rate Blood Pressure 129/51 (mmHg) O2 Sat by Pulse 89 90 89 Oximetry 12/04/16 12/04/16 12/04/16 18:45 19:00 19:13 Temperature Pulse Rate Respiratory 22 22 19 Rate Blood Pressure 126/48 (mmHg) O2 Sat by Pulse 90 92 88 Oximetry 12/04/16 12/04/16 12/04/16 19:30 19:32 19:38 Temperature 99.6 F Pulse Rate Respiratory 20 22 Rate Blood Pressure (mmHg) O2 Sat by Pulse 89 Oximetry 12/04/16 12/04/16 12/04/16 19:45 20:00 20:15 Temperature Pulse Rate Respiratory 28 26 28 Rate Blood Pressure 129/50 (mmHg) O2 Sat by Pulse 88 91 92 Oximetry 12/04/16 12/04/16 12/04/16 20:44 20:45 21:00 Temperature Pulse Rate Respiratory 15 20 Rate Blood Pressure (mmHg) O2 Sat by Pulse 90 90 88 Oximetry 12/04/16 12/04/16 12/04/16 21:15 21:22 21:30 Temperature Pulse Rate Respiratory 21 27 22 Rate Blood Pressure 99/75 (mmHg) O2 Sat by Pulse 91 91 90 Oximetry 12/04/16 12/04/16 12/04/16 21:45 22:00 22:15 Temperature Pulse Rate Respiratory 23 23 25 Rate Blood Pressure 125/50 (mmHg) O2 Sat by Pulse 92 90 88 Oximetry 12/04/16 12/04/16 12/04/16 22:30 22:45 23:00 Temperature Pulse Rate 90 Respiratory 24 18 21 Rate Blood Pressure 89/77 (mmHg) O2 Sat by Pulse 92 90 89 Oximetry 12/04/16 12/04/16 12/04/16 23:02 23:15 23:25 Temperature Pulse Rate Respiratory 23 24 20 Rate Blood Pressure 135/55 (mmHg) O2 Sat by Pulse 89 90 Oximetry 12/04/16 12/04/16 12/04/16 23:29 23:30 23:45 Temperature 99.4 F Pulse Rate Respiratory 27 26 Rate Blood Pressure (mmHg) O2 Sat by Pulse 92 91 Oximetry 12/05/16 12/05/16 12/05/16 00:00 00:01 00:04 Temperature Pulse Rate Respiratory 22 22 21 Rate Blood Pressure 114/29 (mmHg) O2 Sat by Pulse 90 90 89 Oximetry 12/05/16 12/05/16 12/05/16 00:10 00:15 00:30 Temperature Pulse Rate Respiratory 23 20 21 Rate Blood Pressure 136/64 (mmHg) O2 Sat by Pulse 90 88 83 Oximetry 12/05/16 12/05/16 12/05/16 00:45 01:00 01:15 Temperature Pulse Rate 88 Respiratory 23 28 25 Rate Blood Pressure 129/50 (mmHg) O2 Sat by Pulse 88 86 89 Oximetry 12/05/16 12/05/16 12/05/16 01:30 01:45 02:00 Temperature Pulse Rate Respiratory 17 24 23 Rate Blood Pressure 121/46 (mmHg) O2 Sat by Pulse 95 93 94 Oximetry 12/05/16 12/05/16 12/05/16 02:15 02:30 02:45 Temperature Pulse Rate 78 86 Respiratory 23 21 23 Rate Blood Pressure (mmHg) O2 Sat by Pulse 90 88 87 Oximetry 12/05/16 12/05/16 12/05/16 03:04 03:13 03:15 Temperature Pulse Rate 88 77 Respiratory 19 22 23 Rate Blood Pressure (mmHg) O2 Sat by Pulse 93 96 Oximetry 12/05/16 12/05/16 12/05/16 03:23 03:30 03:45 Temperature 98.3 F Pulse Rate Respiratory 21 19 Rate Blood Pressure (mmHg) O2 Sat by Pulse 92 91 Oximetry 12/05/16 12/05/16 12/05/16 04:00 04:15 04:30 Temperature Pulse Rate Respiratory 19 20 22 Rate Blood Pressure 105/42 (mmHg) O2 Sat by Pulse 90 91 89 Oximetry 12/05/16 12/05/16 12/05/16 04:45 05:00 05:15 Temperature Pulse Rate 69 67 Respiratory 21 21 21 Rate Blood Pressure 105/41 (mmHg) O2 Sat by Pulse 90 92 92 Oximetry 12/05/16 12/05/16 12/05/16 05:30 05:45 06:00 Temperature Pulse Rate Respiratory 20 19 21 Rate Blood Pressure 113/48 (mmHg) O2 Sat by Pulse 92 93 92 Oximetry 12/05/16 12/05/16 12/05/16 06:15 06:30 06:45 Temperature Pulse Rate 69 69 71 Respiratory 20 19 19 Rate Blood Pressure (mmHg) O2 Sat by Pulse 87 86 91 Oximetry 12/05/16 12/05/16 12/05/16 07:00 07:15 07:30 Temperature Pulse Rate 67 75 74 Respiratory 19 22 14 Rate Blood Pressure 113/53 (mmHg) O2 Sat by Pulse 89 92 95 Oximetry 12/05/16 12/05/16 12/05/16 07:39 07:45 08:00 Temperature 99 F Pulse Rate 72 73 Respiratory 19 22 Rate Blood Pressure 118/51 (mmHg) O2 Sat by Pulse 93 93 Oximetry 12/05/16 12/05/16 12/05/16 08:15 08:30 08:45 Temperature Pulse Rate 68 67 71 Respiratory 18 22 20 Rate Blood Pressure (mmHg) O2 Sat by Pulse 94 96 93 Oximetry 12/05/16 12/05/16 12/05/16 09:00 09:15 09:30 Temperature Pulse Rate 78 73 73 Respiratory 17 19 17 Rate Blood Pressure 115/52 (mmHg) O2 Sat by Pulse 94 93 95 Oximetry 12/05/16 12/05/16 12/05/16 09:45 10:00 10:15 Temperature Pulse Rate 76 Respiratory 22 15 23 Rate Blood Pressure (mmHg) O2 Sat by Pulse 93 Oximetry 12/05/16 12/05/16 12/05/16 10:22 10:30 10:45 Temperature Pulse Rate 73 74 73 Respiratory 18 23 23 Rate Blood Pressure 120/52 (mmHg) O2 Sat by Pulse 91 91 93 Oximetry 12/05/16 12/05/16 12/05/16 11:00 12:19 12:41 Temperature 98.0 F Pulse Rate 72 71 Respiratory 18 16 Rate Blood Pressure 116/47 132/40 (mmHg) O2 Sat by Pulse 94 93 94 Oximetry Oxygen Devices in Use Now: Nasal Cannula - at 7 l Appearance: 86 yo F in nAD, AAOx3 Eyes: No Scleral Icterus, PERRLA Ears/Nose/Mouth/Throat: NL Teeth, Lips, Gums, Mucous Membranes Moist Neck: NL Appearance and Movements; NL JVP, Trachea Midline Respiratory: Symmetrical Chest Expansion and Respiratory Effort Cardiovascular: NL Sounds; No Murmurs; No JVD, RRR Abdominal: NL Sounds; No Tenderness; No Distention, No Hepatosplenomegaly Lymphatic: No Cervical Adenopathy Extremities: No Clubbing, Cyanosis, - - venous stasis edema b/l Skin: No Nodules or Sclerosis, - - venous stasis skin changes and discoloration Neurological: Alert and Oriented x 3, NL Muscle Strength and Tone Result Diagrams: 12/04/16 05:15 12/04/16 05:15 Additional Lab and Data: Lab Results 12/01/16 12/01/16 12/01/16 Range/Units 08:00 08:00 08:00 WBC 14.7 H (3.5-10.8) 10^3/ul RBC 4.06 (4.0-5.4) 10^6/ul Hgb 11.9 L (12.0-16.0) g/dl Hct 37 (35-47) % MCV 91 (80-97) fL MCH 29 (27-31) pg MCHC 32 (31-36) g/dl RDW 16 H (10.5-15) % Plt Count 290 (150-450) 10^3/ul MPV 9 (7.4-10.4) um3 Neut % (Auto) 84.9 H (38-83) % Lymph % (Auto) 9.2 L (25-47) % [place] % (Auto) 4.6 (1-9) % Eos % (Auto) 0.3 (0-6) % Baso % (Auto) 1.0 (0-2) % Absolute Neuts (auto) 12.5 H (1.5-7.7) 10^3/ul Absolute Lymphs (auto) 1.4 (1.0-4.8) 10^3/ul Absolute Monos (auto) 0.7 (0-0.8) 10^3/ul Absolute Eos (auto) 0 (0-0.6) 10^3/ul Absolute Basos (auto) 0.1 (0-0.2) 10^3/ul Absolute Nucleated RBC 0 10^3/ul Nucleated RBC % 0 INR (Anticoag Therapy) (0.89-1.11) APTT (26.0-36.3) seconds D-Dimer, Quantitative (Less Than 230) ng/mL Patient Temperature ABG pH (7.35-7.45) ABG pCO2 (35-45) mmHg ABG pO2 (80-100) mmHg ABG HCO3 (19-31) mmol/L ABG O2 Saturation (95-98) % ABG Base Excess (-2.0-2.0) Respiration Rate Ventilator Type Vent Mode FiO2 Inspiratory Time PEEP Pressure Support Pressure Control EPAP IPAP BiPAP Sodium 143 (133-145) mmol/L Potassium 3.8 (3.5-5.0) mmol/L Chloride 105 (101-111) mmol/L Carbon Dioxide 28 (22-32) mmol/L Anion Gap 10 (2-11) mmol/L BUN 21 (6-24) mg/dL Creatinine 1.16 H (0.51-0.95) mg/dL Est GFR ( Amer) 56.7 (>60) Est GFR (Non-Af Amer) 44.1 (>60) BUN/Creatinine Ratio 18.1 (8-20) Glucose 160 H (70-100) mg/dL Lactic Acid 1.2 (0.5-2.0) mmol/L Calcium 9.5 (8.6-10.3) mg/dL Total Bilirubin 0.70 (0.2-1.0) mg/dL AST 18 (13-39) U/L ALT 15 (7-52) U/L Alkaline Phosphatase 93 (34-104) U/L CK-MB (CK-2) 2.5 (0.6-6.3) ng/mL Troponin I 0.00 (<0.04) ng/mL C-Reactive Protein (< 5.00) mg/L B-Natriuretic Peptide ( - 100) pg/mL Total Protein 6.9 (6.4-8.9) g/dL Albumin 3.4 (3.2-5.2) g/dL Globulin 3.5 (2-4) g/dL Albumin/Globulin Ratio 1.0 (1-3) 12/01/16 12/01/16 12/01/16 Range/Units 08:00 08:00 08:00 WBC (3.5-10.8) 10^3/ul RBC (4.0-5.4) 10^6/ul Hgb (12.0-16.0) g/dl Hct (35-47) % MCV (80-97) fL MCH (27-31) pg MCHC (31-36) g/dl RDW (10.5-15) % Plt Count (150-450) 10^3/ul MPV (7.4-10.4) um3 Neut % (Auto) (38-83) % Lymph % (Auto) (25-47) % Lam[place] % (Auto) (1-9) % Eos % (Auto) (0-6) % Baso % (Auto) (0-2) % Absolute Neuts (auto) (1.5-7.7) 10^3/ul Absolute Lymphs (auto) (1.0-4.8) 10^3/ul Absolute Monos (auto) (0-0.8) 10^3/ul Absolute Eos (auto) (0-0.6) 10^3/ul Absolute Basos (auto) (0-0.2) 10^3/ul Absolute Nucleated RBC 10^3/ul Nucleated RBC % INR (Anticoag Therapy) 2.81 H (0.89-1.11) APTT 37.3 H (26.0-36.3) seconds D-Dimer, Quantitative < 200 (Less Than 230) ng/mL Patient Temperature ABG pH (7.35-7.45) ABG pCO2 (35-45) mmHg ABG pO2 (80-100) mmHg ABG HCO3 (19-31) mmol/L ABG O2 Saturation (95-98) % ABG Base Excess (-2.0-2.0) Respiration Rate Ventilator Type Vent Mode FiO2 Inspiratory Time PEEP Pressure Support Pressure Control EPAP IPAP BiPAP Sodium (133-145) mmol/L Potassium (3.5-5.0) mmol/L Chloride (101-111) mmol/L Carbon Dioxide (22-32) mmol/L Anion Gap (2-11) mmol/L BUN (6-24) mg/dL Creatinine (0.51-0.95) mg/dL Est GFR ( Amer) (>60) Est GFR (Non-Af Amer) (>60) BUN/Creatinine Ratio (8-20) Glucose (70-100) mg/dL Lactic Acid (0.5-2.0) mmol/L Calcium (8.6-10.3) mg/dL Total Bilirubin (0.2-1.0) mg/dL AST (13-39) U/L ALT (7-52) U/L Alkaline Phosphatase (34-104) U/L CK-MB (CK-2) (0.6-6.3) ng/mL Troponin I (<0.04) ng/mL C-Reactive Protein 47.99 H (< 5.00) mg/L B-Natriuretic Peptide 78 ( - 100) pg/mL Total Protein (6.4-8.9) g/dL Albumin (3.2-5.2) g/dL Globulin (2-4) g/dL Albumin/Globulin Ratio (1-3) 05//17 Range/Units 08:30 WBC (3.5-10.8) 10^3/ul RBC (4.0-5.4) 10^6/ul Hgb (12.0-16.0) g/dl Hct (35-47) % MCV (80-97) fL MCH (27-31) pg MCHC (31-36) g/dl RDW (10.5-15) % Plt Count (150-450) 10^3/ul MPV (7.4-10.4) um3 Neut % (Auto) (38-83) % Lymph % (Auto) (25-47) % Lam[place] % (Auto) (1-9) % Eos % (Auto) (0-6) % Baso % (Auto) (0-2) % Absolute Neuts (auto) (1.5-7.7) 10^3/ul Absolute Lymphs (auto) (1.0-4.8) 10^3/ul Absolute Monos (auto) (0-0.8) 10^3/ul Absolute Eos (auto) (0-0.6) 10^3/ul Absolute Basos (auto) (0-0.2) 10^3/ul Absolute Nucleated RBC 10^3/ul Nucleated RBC % INR (Anticoag Therapy) (0.89-1.11) APTT (26.0-36.3) seconds D-Dimer, Quantitative (Less Than 230) ng/mL Patient Temperature Not Reportable ABG pH 7.38 (7.35-7.45) ABG pCO2 47 H (35-45) mmHg ABG pO2 51 L* (80-100) mmHg ABG HCO3 26.4 (19-31) mmol/L ABG O2 Saturation 90.9 L (95-98) % ABG Base Excess 2.1 H (-2.0-2.0) Respiration Rate Not Reportable Ventilator Type Not Reportable Vent Mode Not Reportable FiO2 15 Inspiratory Time Not Reportable PEEP Not Reportable Pressure Support Not Reportable Pressure Control Not Reportable EPAP Not Reportable IPAP Not Reportable BiPAP Not Reportable Sodium (133-145) mmol/L Potassium (3.5-5.0) mmol/L Chloride (101-111) mmol/L Carbon Dioxide (22-32) mmol/L Anion Gap (2-11) mmol/L BUN (6-24) mg/dL Creatinine (0.51-0.95) mg/dL Est GFR ( Amer) (>60) Est GFR (Non-Af Amer) (>60) BUN/Creatinine Ratio (8-20) Glucose (70-100) mg/dL Lactic Acid (0.5-2.0) mmol/L Calcium (8.6-10.3) mg/dL Total Bilirubin (0.2-1.0) mg/dL AST (13-39) U/L ALT (7-52) U/L Alkaline Phosphatase (34-104) U/L CK-MB (CK-2) (0.6-6.3) ng/mL Troponin I (<0.04) ng/mL C-Reactive Protein (< 5.00) mg/L B-Natriuretic Peptide ( - 100) pg/mL Total Protein (6.4-8.9) g/dL Albumin (3.2-5.2) g/dL Globulin (2-4) g/dL Albumin/Globulin Ratio (1-3) Microbiology and Other Data: Microbiology 12/02/16 10:30 Legionella Urinary Antigen - Final Urine Negative Legionella Streptococcus pneumoniae Ag Screen - Final Negative S. pneumo Antigen 12/01/16 11:45 Nasal Screen MRSA (PCR)([facility]) - Final Nasal Mrsa Negative Assess/Plan/Problems-Billing Assessment: 86 yo f with h/o PAF, chronic venous stasis, scoliosis and restrictive lung disease (on nighttime 02 T 3L) presented with aspiration - Patient Problems (1) Acute respiratory failure Comment: with hypoxemia due to aspiration pneumonia cont Clindamycin, added Azithro for atypical coverage in pt who recently travelled(Legionella and Strep pneumoatg neg) hypoxia improving (2) Atrial fibrillation Comment: paroxysmal cont Cardizem CD (3) DVT prophylaxis Comment: INR 1.5 today, Coumadin cont (4) Left leg injury Comment: s/p fall 1 week prior to admission. no fx on XRay cont PT (5) Restrictive airway disease Comment: due to scoliosis, on nightime 02 at 3 l at home Likely will need 02 continuously at d/c Status and Disposition: inpatient
[2016-12-05] MEDS: Warfarin TAB(*) 5 MG PO SCH (17:20)
[2016-12-05] MEDS ORDERED: Loperamide CAP* 2 MG PO ONE (20:31)
[2016-12-05] MEDS: Diltiazem CD CAP* 120 MG PO SCH (20:42)
[2016-12-06] MEDS: Clindamycin CAP* 150 MG PO SCH ×5 (01:42→23:44)
[2016-12-06] MEDS: HYDROcodone/ACETAMIN 5-325 MG* 1 TAB PO PRN ×2 (01:48→23:45)
[2016-12-06] MEDS: Ondansetron INJ* 2 MG/ML VIAL IV PRN (03:35)
[2016-12-06] MEDS: Diltiazem CD CAP* 240 MG PO SCH (11:19)
[2016-12-06] MEDS: Lactobacillus Acidophilu (GG)* 1 CAP CAP PO SCH ×2 (12:09→20:12)
--- NOTE | 2016-12-06 14:27 | PN ---
Subjective Date of Service: 12/06/16 Interval History: pt c/o having diarrhea x 3 yesterday. No bad pain Objective Active Medications: Hydrocodone Bitart/Acetaminophen ([place] 5-325 Tab*) 1 tab PO Q4H PRN PRN Reason: PAIN Last Admin: 12/06/16 01:48 Dose: 1 tab Albuterol/Ipratropium (Duoneb (Albuterol 2.5 Mg/Ipratropium 0.5 Mg)) 1 neb INH Q4H PRN PRN Reason: SOB/WHEEZING Clindamycin HCl (Cleocin Cap*) 300 mg PO Q6HR [facility] Last Admin: 12/06/16 11:19 Dose: 300 mg Diltiazem HCl (Cardizem Cd Cap*) 120 mg PO BEDTIME [facility] Last Admin: 12/05/16 20:42 Dose: 120 mg Diltiazem HCl (Cardizem Cd Cap*) 240 mg PO DAILY [facility] Last Admin: 12/06/16 11:19 Dose: 240 mg Lactobacillus Rhamnosus (Culturelle*) 1 cap PO BID [facility] Last Admin: 12/06/16 12:09 Dose: 1 cap Ondansetron HCl (Zofran Inj*) 4 mg IV Q6H PRN PRN Reason: NAUSEA Last Admin: 12/06/16 03:35 Dose: 4 mg Pharmacy Profile Note (Coumadin Daily Reminder*) 1 note FOLLOW UP 1700 [facility] Last Admin: 12/05/16 17:21 Dose: 1 note Warfarin Sodium (Coumadin Tab(*)) 5 mg PO DAILY@1700 [facility] PRN Reason: Protocol Last Admin: 12/05/16 17:20 Dose: 5 mg Vital Signs 12/05/16 12/05/16 12/05/16 15:26 19:58 20:00 Temperature 98.3 F 98.4 F Pulse Rate 75 86 86 Respiratory 20 22 22 Rate Blood Pressure 129/50 124/49 (mmHg) O2 Sat by Pulse 95 97 97 Oximetry 12/05/16 12/05/16 12/05/16 20:46 22:46 23:34 Temperature 98.0 F Pulse Rate 81 Respiratory 22 22 20 Rate Blood Pressure 121/54 (mmHg) O2 Sat by Pulse 94 Oximetry 12/06/16 12/06/16 12/06/16 01:48 03:48 03:58 Temperature 98.0 F Pulse Rate 86 Respiratory 20 20 20 Rate Blood Pressure 121/43 (mmHg) O2 Sat by Pulse 88 Oximetry 12/06/16 07:31 Temperature 98.0 F Pulse Rate 70 Respiratory 18 Rate Blood Pressure 118/50 (mmHg) O2 Sat by Pulse 92 Oximetry Oxygen Devices in Use Now: Nasal Cannula - at 7 l Appearance: 86 yo F in NAD, aAOx3 Eyes: No Scleral Icterus, PERRLA Ears/Nose/Mouth/Throat: NL Teeth, Lips, Gums, Mucous Membranes Moist Neck: NL Appearance and Movements; NL JVP, Trachea Midline Respiratory: Symmetrical Chest Expansion and Respiratory Effort, Clear to Auscultation Cardiovascular: NL Sounds; No Murmurs; No JVD, RRR Abdominal: NL Sounds; No Tenderness; No Distention, No Hepatosplenomegaly Lymphatic: No Cervical Adenopathy Extremities: No Clubbing, Cyanosis Skin: - - chronic venous stasis edema and skin discoloration on b/l LE's Neurological: Alert and Oriented x 3, NL Muscle Strength and Tone Result Diagrams: 12/04/16 05:15 12/04/16 05:15 Additional Lab and Data: Lab Results 12/01/16 12/01/16 12/01/16 Range/Units 08:00 08:00 08:00 WBC 14.7 H (3.5-10.8) 10^3/ul RBC 4.06 (4.0-5.4) 10^6/ul Hgb 11.9 L (12.0-16.0) g/dl Hct 37 (35-47) % MCV 91 (80-97) fL MCH 29 (27-31) pg MCHC 32 (31-36) g/dl RDW 16 H (10.5-15) % Plt Count 290 (150-450) 10^3/ul MPV 9 (7.4-10.4) um3 Neut % (Auto) 84.9 H (38-83) % Lymph % (Auto) 9.2 L (25-47) % [place] % (Auto) 4.6 (1-9) % Eos % (Auto) 0.3 (0-6) % Baso % (Auto) 1.0 (0-2) % Absolute Neuts (auto) 12.5 H (1.5-7.7) 10^3/ul Absolute Lymphs (auto) 1.4 (1.0-4.8) 10^3/ul Absolute Monos (auto) 0.7 (0-0.8) 10^3/ul Absolute Eos (auto) 0 (0-0.6) 10^3/ul Absolute Basos (auto) 0.1 (0-0.2) 10^3/ul Absolute Nucleated RBC 0 10^3/ul Nucleated RBC % 0 INR (Anticoag Therapy) (0.89-1.11) APTT (26.0-36.3) seconds D-Dimer, Quantitative (Less Than 230) ng/mL Patient Temperature ABG pH (7.35-7.45) ABG pCO2 (35-45) mmHg ABG pO2 (80-100) mmHg ABG HCO3 (19-31) mmol/L ABG O2 Saturation (95-98) % ABG Base Excess (-2.0-2.0) Respiration Rate Ventilator Type Vent Mode FiO2 Inspiratory Time PEEP Pressure Support Pressure Control EPAP IPAP BiPAP Sodium 143 (133-145) mmol/L Potassium 3.8 (3.5-5.0) mmol/L Chloride 105 (101-111) mmol/L Carbon Dioxide 28 (22-32) mmol/L Anion Gap 10 (2-11) mmol/L BUN 21 (6-24) mg/dL Creatinine 1.16 H (0.51-0.95) mg/dL Est GFR ( Amer) 56.7 (>60) Est GFR (Non-Af Amer) 44.1 (>60) BUN/Creatinine Ratio 18.1 (8-20) Glucose 160 H (70-100) mg/dL Lactic Acid 1.2 (0.5-2.0) mmol/L Calcium 9.5 (8.6-10.3) mg/dL Total Bilirubin 0.70 (0.2-1.0) mg/dL AST 18 (13-39) U/L ALT 15 (7-52) U/L Alkaline Phosphatase 93 (34-104) U/L CK-MB (CK-2) 2.5 (0.6-6.3) ng/mL Troponin I 0.00 (<0.04) ng/mL C-Reactive Protein (< 5.00) mg/L B-Natriuretic Peptide ( - 100) pg/mL Total Protein 6.9 (6.4-8.9) g/dL Albumin 3.4 (3.2-5.2) g/dL Globulin 3.5 (2-4) g/dL Albumin/Globulin Ratio 1.0 (1-3) 12/01/16 12/01/16 12/01/16 Range/Units 08:00 08:00 08:00 WBC (3.5-10.8) 10^3/ul RBC (4.0-5.4) 10^6/ul Hgb (12.0-16.0) g/dl Hct (35-47) % MCV (80-97) fL MCH (27-31) pg MCHC (31-36) g/dl RDW (10.5-15) % Plt Count (150-450) 10^3/ul MPV (7.4-10.4) um3 Neut % (Auto) (38-83) % Lymph % (Auto) (25-47) % [place] % (Auto) (1-9) % Eos % (Auto) (0-6) % Baso % (Auto) (0-2) % Absolute Neuts (auto) (1.5-7.7) 10^3/ul Absolute Lymphs (auto) (1.0-4.8) 10^3/ul Absolute Monos (auto) (0-0.8) 10^3/ul Absolute Eos (auto) (0-0.6) 10^3/ul Absolute Basos (auto) (0-0.2) 10^3/ul Absolute Nucleated RBC 10^3/ul Nucleated RBC % INR (Anticoag Therapy) 2.81 H (0.89-1.11) APTT 37.3 H (26.0-36.3) seconds D-Dimer, Quantitative < 200 (Less Than 230) ng/mL Patient Temperature ABG pH (7.35-7.45) ABG pCO2 (35-45) mmHg ABG pO2 (80-100) mmHg ABG HCO3 (19-31) mmol/L ABG O2 Saturation (95-98) % ABG Base Excess (-2.0-2.0) Respiration Rate Ventilator Type Vent Mode FiO2 Inspiratory Time PEEP Pressure Support Pressure Control EPAP IPAP BiPAP Sodium (133-145) mmol/L Potassium (3.5-5.0) mmol/L Chloride (101-111) mmol/L Carbon Dioxide (22-32) mmol/L Anion Gap (2-11) mmol/L BUN (6-24) mg/dL Creatinine (0.51-0.95) mg/dL Est GFR ( Amer) (>60) Est GFR (Non-Af Amer) (>60) BUN/Creatinine Ratio (8-20) Glucose (70-100) mg/dL Lactic Acid (0.5-2.0) mmol/L Calcium (8.6-10.3) mg/dL Total Bilirubin (0.2-1.0) mg/dL AST (13-39) U/L ALT (7-52) U/L Alkaline Phosphatase (34-104) U/L CK-MB (CK-2) (0.6-6.3) ng/mL Troponin I (<0.04) ng/mL C-Reactive Protein 47.99 H (< 5.00) mg/L B-Natriuretic Peptide 78 ( - 100) pg/mL Total Protein (6.4-8.9) g/dL Albumin (3.2-5.2) g/dL Globulin (2-4) g/dL Albumin/Globulin Ratio (1-3) // Range/Units 08:30 WBC (3.5-10.8) 10^3/ul RBC (4.0-5.4) 10^6/ul Hgb (12.0-16.0) g/dl Hct (35-47) % MCV (80-97) fL MCH (27-31) pg MCHC (31-36) g/dl RDW (10.5-15) % Plt Count (150-450) 10^3/ul MPV (7.4-10.4) um3 Neut % (Auto) (38-83) % Lymph % (Auto) (25-47) % [place] % (Auto) (1-9) % Eos % (Auto) (0-6) % Baso % (Auto) (0-2) % Absolute Neuts (auto) (1.5-7.7) 10^3/ul Absolute Lymphs (auto) (1.0-4.8) 10^3/ul Absolute Monos (auto) (0-0.8) 10^3/ul Absolute Eos (auto) (0-0.6) 10^3/ul Absolute Basos (auto) (0-0.2) 10^3/ul Absolute Nucleated RBC 10^3/ul Nucleated RBC % INR (Anticoag Therapy) (0.89-1.11) APTT (26.0-36.3) seconds D-Dimer, Quantitative (Less Than 230) ng/mL Patient Temperature Not Reportable ABG pH 7.38 (7.35-7.45) ABG pCO2 47 H (35-45) mmHg ABG pO2 51 L* (80-100) mmHg ABG HCO3 26.4 (19-31) mmol/L ABG O2 Saturation 90.9 L (95-98) % ABG Base Excess 2.1 H (-2.0-2.0) Respiration Rate Not Reportable Ventilator Type Not Reportable Vent Mode Not Reportable FiO2 15 Inspiratory Time Not Reportable PEEP Not Reportable Pressure Support Not Reportable Pressure Control Not Reportable EPAP Not Reportable IPAP Not Reportable BiPAP Not Reportable Sodium (133-145) mmol/L Potassium (3.5-5.0) mmol/L Chloride (101-111) mmol/L Carbon Dioxide (22-32) mmol/L Anion Gap (2-11) mmol/L BUN (6-24) mg/dL Creatinine (0.51-0.95) mg/dL Est GFR ( Amer) (>60) Est GFR (Non-Af Amer) (>60) BUN/Creatinine Ratio (8-20) Glucose (70-100) mg/dL Lactic Acid (0.5-2.0) mmol/L Calcium (8.6-10.3) mg/dL Total Bilirubin (0.2-1.0) mg/dL AST (13-39) U/L ALT (7-52) U/L Alkaline Phosphatase (34-104) U/L CK-MB (CK-2) (0.6-6.3) ng/mL Troponin I (<0.04) ng/mL C-Reactive Protein (< 5.00) mg/L B-Natriuretic Peptide ( - 100) pg/mL Total Protein (6.4-8.9) g/dL Albumin (3.2-5.2) g/dL Globulin (2-4) g/dL Albumin/Globulin Ratio (1-3) Microbiology and Other Data: Microbiology 12/02/16 10:30 Legionella Urinary Antigen - Final Urine Negative Legionella Streptococcus pneumoniae Ag Screen - Final Negative S. pneumo Antigen 12/01/16 11:45 Nasal Screen MRSA (PCR)([facility]) - Final Nasal Mrsa Negative Assess/Plan/Problems-Billing Assessment: 86 yo f with h/o PAF, chronic venous stasis, scoliosis and restrictive lung disease (on nighttime 02 T 3L) presented with aspiration - Patient Problems (1) Acute respiratory failure Comment: with hypoxemia due to aspiration pneumonia cont Clindamycin(Legionella and Strep pneumo atg neg) hypoxia improving swlowly-cont incentive spirometry and encourage ambulation completed a course of Azithro (2) Atrial fibrillation Comment: paroxysmal cont Cardizem CD (3) Left leg injury Comment: s/p fall 1 week prior to admission. no fx on XRay cont PT (4) Restrictive airway disease Comment: due to scoliosis, on nightime 02 at 3 l at home Likely will need 02 continuously at d/c (5) Antibiotic-associated diarrhea Comment: will start probiotics. (6) DVT prophylaxis Comment: Coumadin cont Status and Disposition: inpatient
[2016-12-06] MEDS: Warfarin TAB(*) 5 MG PO SCH (16:12)
[2016-12-06] MEDS ORDERED: Omeprazole CAP* 20 MG PO ONE (17:47)
[2016-12-06] MEDS: Diltiazem CD CAP* 120 MG PO SCH (20:12)
[2016-12-07] MEDS: Ondansetron INJ* 2 MG/ML VIAL IV PRN (02:15)
[2016-12-07] MEDS: Clindamycin CAP* 150 MG PO SCH ×3 (06:10→17:10)
[2016-12-07] MEDS: Omeprazole CAP* 20 MG PO SCH (06:11)
[2016-12-07] MEDS: HYDROcodone/ACETAMIN 5-325 MG* 1 TAB PO PRN ×2 (08:45→23:06)
[2016-12-07] MEDS: Diltiazem CD CAP* 240 MG PO SCH (08:45)
[2016-12-07] MEDS: Lactobacillus Acidophilu (GG)* 1 CAP CAP PO SCH ×2 (08:45→20:20)
--- NOTE | 2016-12-07 15:20 | PN ---
Subjective Date of Service: 12/07/16 Interval History: Pt feels very well. Loose BM's resolved. Ambulates on 4 l 02. Objective Active Medications: Hydrocodone Bitart/Acetaminophen ([place] 5-325 Tab*) 1 tab PO Q4H PRN PRN Reason: PAIN Last Admin: 12/07/16 08:45 Dose: 1 tab Albuterol/Ipratropium (Duoneb (Albuterol 2.5 Mg/Ipratropium 0.5 Mg)) 1 neb INH Q4H PRN PRN Reason: SOB/WHEEZING Clindamycin HCl (Cleocin Cap*) 300 mg PO Q6HR [facility] Last Admin: 12/07/16 11:57 Dose: 300 mg Diltiazem HCl (Cardizem Cd Cap*) 120 mg PO BEDTIME [facility] Last Admin: 12/06/16 20:12 Dose: 120 mg Diltiazem HCl (Cardizem Cd Cap*) 240 mg PO DAILY [facility] Last Admin: 12/07/16 08:45 Dose: 240 mg Heparin Sodium (Porcine) (Heparin Flush Picc/Ml/Cvc(*)) 1 - 3 ml FLUSH 0600, 1800 [facility] PRN Reason: Protocol Last Admin: 12/07/16 05:45 Dose: 1 ml Lactobacillus Rhamnosus (Culturelle*) 1 cap PO BID [facility] Last Admin: 12/07/16 08:45 Dose: 1 cap Omeprazole (Prilosec Cap*) 20 mg PO DAILY@0600 [facility] Last Admin: 12/07/16 06:11 Dose: 20 mg Ondansetron HCl (Zofran Inj*) 4 mg IV Q6H PRN PRN Reason: NAUSEA Last Admin: 12/07/16 02:15 Dose: 4 mg Pharmacy Profile Note (Coumadin Daily Reminder*) 1 note FOLLOW UP 1700 [facility] Last Admin: 12/06/16 16:13 Dose: 1 note Warfarin Sodium (Coumadin Tab(*)) 5 mg PO DAILY@1700 [facility] PRN Reason: Protocol Last Admin: 12/06/16 16:12 Dose: 5 mg Vital Signs 12/06/16 12/06/16 12/06/16 15:58 20:00 20:06 Temperature 98.3 F 98.3 F Pulse Rate 80 80 Respiratory 18 18 18 Rate Blood Pressure 131/46 118/44 (mmHg) O2 Sat by Pulse 96 95 Oximetry 12/06/16 12/07/16 12/07/16 23:45 01:45 03:46 Temperature 98.2 F 98.1 F Pulse Rate 79 74 Respiratory 20 20 20 Rate Blood Pressure 122/37 111/45 (mmHg) O2 Sat by Pulse 91 89 Oximetry 12/07/16 12/07/16 12/07/16 07:39 08:00 08:23 Temperature 97.4 F Pulse Rate 64 75 Respiratory 18 16 18 Rate Blood Pressure 120/43 (mmHg) O2 Sat by Pulse 92 92 Oximetry 12/07/16 12/07/16 08:45 10:45 Temperature Pulse Rate Respiratory 16 20 Rate Blood Pressure (mmHg) O2 Sat by Pulse Oximetry Oxygen Devices in Use Now: Nasal Cannula - at 4 l Appearance: 86 yo f in nAD, aAOx3 Eyes: No Scleral Icterus, PERRLA Ears/Nose/Mouth/Throat: NL Teeth, Lips, Gums, Mucous Membranes Moist Neck: NL Appearance and Movements; NL JVP, Trachea Midline Respiratory: Symmetrical Chest Expansion and Respiratory Effort, Clear to Auscultation Cardiovascular: NL Sounds; No Murmurs; No JVD, RRR, - Abdominal: NL Sounds; No Tenderness; No Distention, No Hepatosplenomegaly Lymphatic: No Cervical Adenopathy Extremities: No Clubbing, Cyanosis, - - venous stasis skin discoloration and edema-at baseline Skin: No Nodules or Sclerosis Neurological: Alert and Oriented x 3, NL Muscle Strength and Tone Result Diagrams: 12/04/16 05:15 12/04/16 05:15 Additional Lab and Data: Lab Results 12/01/16 12/01/16 12/01/16 Range/Units 08:00 08:00 08:00 WBC 14.7 H (3.5-10.8) 10^3/ul RBC 4.06 (4.0-5.4) 10^6/ul Hgb 11.9 L (12.0-16.0) g/dl Hct 37 (35-47) % MCV 91 (80-97) fL MCH 29 (27-31) pg MCHC 32 (31-36) g/dl RDW 16 H (10.5-15) % Plt Count 290 (150-450) 10^3/ul MPV 9 (7.4-10.4) um3 Neut % (Auto) 84.9 H (38-83) % Lymph % (Auto) 9.2 L (25-47) % [place] % (Auto) 4.6 (1-9) % Eos % (Auto) 0.3 (0-6) % Baso % (Auto) 1.0 (0-2) % Absolute Neuts (auto) 12.5 H (1.5-7.7) 10^3/ul Absolute Lymphs (auto) 1.4 (1.0-4.8) 10^3/ul Absolute Monos (auto) 0.7 (0-0.8) 10^3/ul Absolute Eos (auto) 0 (0-0.6) 10^3/ul Absolute Basos (auto) 0.1 (0-0.2) 10^3/ul Absolute Nucleated RBC 0 10^3/ul Nucleated RBC % 0 INR (Anticoag Therapy) (0.89-1.11) APTT (26.0-36.3) seconds D-Dimer, Quantitative (Less Than 230) ng/mL Patient Temperature ABG pH (7.35-7.45) ABG pCO2 (35-45) mmHg ABG pO2 (80-100) mmHg ABG HCO3 (19-31) mmol/L ABG O2 Saturation (95-98) % ABG Base Excess (-2.0-2.0) Respiration Rate Ventilator Type Vent Mode FiO2 Inspiratory Time PEEP Pressure Support Pressure Control EPAP IPAP BiPAP Sodium 143 (133-145) mmol/L Potassium 3.8 (3.5-5.0) mmol/L Chloride 105 (101-111) mmol/L Carbon Dioxide 28 (22-32) mmol/L Anion Gap 10 (2-11) mmol/L BUN 21 (6-24) mg/dL Creatinine 1.16 H (0.51-0.95) mg/dL Est GFR ( Amer) 56.7 (>60) Est GFR (Non-Af Amer) 44.1 (>60) BUN/Creatinine Ratio 18.1 (8-20) Glucose 160 H (70-100) mg/dL Lactic Acid 1.2 (0.5-2.0) mmol/L Calcium 9.5 (8.6-10.3) mg/dL Total Bilirubin 0.70 (0.2-1.0) mg/dL AST 18 (13-39) U/L ALT 15 (7-52) U/L Alkaline Phosphatase 93 (34-104) U/L CK-MB (CK-2) 2.5 (0.6-6.3) ng/mL Troponin I 0.00 (<0.04) ng/mL C-Reactive Protein (< 5.00) mg/L B-Natriuretic Peptide ( - 100) pg/mL Total Protein 6.9 (6.4-8.9) g/dL Albumin 3.4 (3.2-5.2) g/dL Globulin 3.5 (2-4) g/dL Albumin/Globulin Ratio 1.0 (1-3) 12/01/16 12/01/16 12/01/16 Range/Units 08:00 08:00 08:00 WBC (3.5-10.8) 10^3/ul RBC (4.0-5.4) 10^6/ul Hgb (12.0-16.0) g/dl Hct (35-47) % MCV (80-97) fL MCH (27-31) pg MCHC (31-36) g/dl RDW (10.5-15) % Plt Count (150-450) 10^3/ul MPV (7.4-10.4) um3 Neut % (Auto) (38-83) % Lymph % (Auto) (25-47) % [place]ville % (Auto) (1-9) % Eos % (Auto) (0-6) % Baso % (Auto) (0-2) % Absolute Neuts (auto) (1.5-7.7) 10^3/ul Absolute Lymphs (auto) (1.0-4.8) 10^3/ul Absolute Monos (auto) (0-0.8) 10^3/ul Absolute Eos (auto) (0-0.6) 10^3/ul Absolute Basos (auto) (0-0.2) 10^3/ul Absolute Nucleated RBC 10^3/ul Nucleated RBC % INR (Anticoag Therapy) 2.81 H (0.89-1.11) APTT 37.3 H (26.0-36.3) seconds D-Dimer, Quantitative < 200 (Less Than 230) ng/mL Patient Temperature ABG pH (7.35-7.45) ABG pCO2 (35-45) mmHg ABG pO2 (80-100) mmHg ABG HCO3 (19-31) mmol/L ABG O2 Saturation (95-98) % ABG Base Excess (-2.0-2.0) Respiration Rate Ventilator Type Vent Mode FiO2 Inspiratory Time PEEP Pressure Support Pressure Control EPAP IPAP BiPAP Sodium (133-145) mmol/L Potassium (3.5-5.0) mmol/L Chloride (101-111) mmol/L Carbon Dioxide (22-32) mmol/L Anion Gap (2-11) mmol/L BUN (6-24) mg/dL Creatinine (0.51-0.95) mg/dL Est GFR ( Amer) (>60) Est GFR (Non-Af Amer) (>60) BUN/Creatinine Ratio (8-20) Glucose (70-100) mg/dL Lactic Acid (0.5-2.0) mmol/L Calcium (8.6-10.3) mg/dL Total Bilirubin (0.2-1.0) mg/dL AST (13-39) U/L ALT (7-52) U/L Alkaline Phosphatase (34-104) U/L CK-MB (CK-2) (0.6-6.3) ng/mL Troponin I (<0.04) ng/mL C-Reactive Protein 47.99 H (< 5.00) mg/L B-Natriuretic Peptide 78 ( - 100) pg/mL Total Protein (6.4-8.9) g/dL Albumin (3.2-5.2) g/dL Globulin (2-4) g/dL Albumin/Globulin Ratio (1-3) 12/01/16 Range/Units 08:30 WBC (3.5-10.8) 10^3/ul RBC (4.0-5.4) 10^6/ul Hgb (12.0-16.0) g/dl Hct (35-47) % MCV (80-97) fL MCH (27-31) pg MCHC (31-36) g/dl RDW (10.5-15) % Plt Count (150-450) 10^3/ul MPV (7.4-10.4) um3 Neut % (Auto) (38-83) % Lymph % (Auto) (25-47) % [place] % (Auto) (1-9) % Eos % (Auto) (0-6) % Baso % (Auto) (0-2) % Absolute Neuts (auto) (1.5-7.7) 10^3/ul Absolute Lymphs (auto) (1.0-4.8) 10^3/ul Absolute Monos (auto) (0-0.8) 10^3/ul Absolute Eos (auto) (0-0.6) 10^3/ul Absolute Basos (auto) (0-0.2) 10^3/ul Absolute Nucleated RBC 10^3/ul Nucleated RBC % INR (Anticoag Therapy) (0.89-1.11) APTT (26.0-36.3) seconds D-Dimer, Quantitative (Less Than 230) ng/mL Patient Temperature Not Reportable ABG pH 7.38 (7.35-7.45) ABG pCO2 47 H (35-45) mmHg ABG pO2 51 L* (80-100) mmHg ABG HCO3 26.4 (19-31) mmol/L ABG O2 Saturation 90.9 L (95-98) % ABG Base Excess 2.1 H (-2.0-2.0) Respiration Rate Not Reportable Ventilator Type Not Reportable Vent Mode Not Reportable FiO2 15 Inspiratory Time Not Reportable PEEP Not Reportable Pressure Support Not Reportable Pressure Control Not Reportable EPAP Not Reportable IPAP Not Reportable BiPAP Not Reportable Sodium (133-145) mmol/L Potassium (3.5-5.0) mmol/L Chloride (101-111) mmol/L Carbon Dioxide (22-32) mmol/L Anion Gap (2-11) mmol/L BUN (6-24) mg/dL Creatinine (0.51-0.95) mg/dL Est GFR ( Amer) (>60) Est GFR (Non-Af Amer) (>60) BUN/Creatinine Ratio (8-20) Glucose (70-100) mg/dL Lactic Acid (0.5-2.0) mmol/L Calcium (8.6-10.3) mg/dL Total Bilirubin (0.2-1.0) mg/dL AST (13-39) U/L ALT (7-52) U/L Alkaline Phosphatase (34-104) U/L CK-MB (CK-2) (0.6-6.3) ng/mL Troponin I (<0.04) ng/mL C-Reactive Protein (< 5.00) mg/L B-Natriuretic Peptide ( - 100) pg/mL Total Protein (6.4-8.9) g/dL Albumin (3.2-5.2) g/dL Globulin (2-4) g/dL Albumin/Globulin Ratio (1-3) Microbiology and Other Data: Microbiology 12/02/16 10:30 Legionella Urinary Antigen - Final Urine Negative Legionella Streptococcus pneumoniae Ag Screen - Final Negative S. pneumo Antigen 12/01/16 11:45 Nasal Screen MRSA (PCR)([facility]UN[facility]) - Final Nasal Mrsa Negative Assess/Plan/Problems-Billing Assessment: 86 yo f with h/o PAF, chronic venous stasis, scoliosis and restrictive lung disease (on nighttime 02 T 3L) presented with aspiration - Patient Problems (1) Acute respiratory failure Comment: with hypoxemia due to aspiration pneumonia today is the last day of Clida tx(total of 7 days) hypoxia improving slowly-cont incentive spirometry and encourage ambulation completed a course of Azithro (2) Atrial fibrillation Comment: paroxysmal cont Cardizem CD (3) Left leg injury Comment: s/p fall 1 week prior to admission. no fx on XRay cont PT (4) Restrictive airway disease Comment: due to scoliosis, on nightime 02 at 3 l at home Will need 02 continuously at d/c (5) Antibiotic-associated diarrhea Comment: will start probiotics. (6) DVT prophylaxis Comment: Coumadin cont, INR 1.8 today Status and Disposition: inpatient, plant to d/c home tomorrow. Pt has a industrial tractor driver who will take her directly to her home in [place] at 1 PM tomorrow
[2016-12-07] MEDS: Warfarin TAB(*) 5 MG PO SCH (17:10)
[2016-12-07] MEDS: Diltiazem CD CAP* 120 MG PO SCH (20:20)
[2016-12-08] MEDS: Omeprazole CAP* 20 MG PO SCH (05:15)
[2016-12-08 09:21] VITALS: BP 123/47
[2016-12-08] MEDS: Diltiazem CD CAP* 240 MG PO SCH (09:33)
[2016-12-08] MEDS: Lactobacillus Acidophilu (GG)* 1 CAP CAP PO SCH (09:33)
--- NOTE | 2016-12-09 03:41 | DS ---
DISCHARGE SUMMARY: DATE OF ADMISSION: 12/01/16 DATE OF DISCHARGE: 12/08/16 PRIMARY CARE PROVIDER: Dr. Chris Meléndez, [place], [place]. Phone number [phone]. DISCHARGE DIAGNOSES: 1. Acute hypoxemic respiratory failure due to pneumonia most likely due to aspiration. 2. Left lower extremity contusion after a fall that this patient sustained prior to admission. SECONDARY DIAGNOSES: 1. History of chronic atrial fibrillation. 2. History of lower extremity deep venous thrombosis in the past. 3. Gastroesophageal reflux disease. 4. Hypertension. 5. History of obstructive lung disease, on nocturnal oxygen at 3 L. MEDICATIONS AT DISCHARGE: Basically unchanged from home medications and include : 1. Cardizem CD 240 mg daily in the morning and 120 at bedtime. 2. Calcium with vitamin D 1 tablet daily. 3. Centrum vitamin 1 tablet daily. 4. Coumadin 5 mg at bedtime. 5. Lisinopril 10 mg daily. 6. Vicodin 5/300 one tablet p.o. on a p.r.n. basis. The patient was discharged with a roller walker. She is on continuous oxygen at this point at 3 L. She has portable oxygen at home. She was also referred to visiting nurse association in her home town. HOSPITALIZATION COURSE: Shen Patel is an 86-year-old with history of atrial fibrillation, on anticoagulation with Coumadin, who also has a history of bilateral lower extremities venostasis and venous edema and DVT in the past. She is visiting the [place] area for her granddaughter's graduation. After having ice-cream on one of the evenings after she flew into the [place] from [place] with a layover in [place], the patient presented with sudden onset of respiratory distress. Apparently, she had ice-cream and afterwards she started coughing. At some point, she started coughing up something that looked like the ice-cream she just ate. After she developed acute respiratory distress, the patient was admitted to the intensive care unit on the Vapotherm. She required high-flow oxygen initially at 25 L on Vapotherm. She was placed on broad-spectrum antibiotics that included clindamycin and azithromycin. Initially, she was stabilized, but her hypoxemia continued to be present for a significant part of her hospital stay. While in the ICU on Vapotherm, she had a short bout of atrial fibrillation, but otherwise she continued to be in normal sinus rhythm on telemetry monitored bed. Approximately 3 days into her hospital stay, she was able to be transferred to telemetry floor from the intensive care unit. Initially, on the medical floor, she was on 7 liters of oxygen via nasal cannula; but at the time of discharge, she was weaned down to 3 L of oxygen continuously. Prior to the patient's admission, she apparently fell a week before and hit her left leg. She has a history of old injury to her left leg and she has always had osteoarthritic problems related to that. Her x-rays did not show any pelvis or lower extremity injury or fractures. She did have ecchymotic areas originally in the left leg that resulted during her hospital stay. By the time of discharge, she was ambulating with her roller walker comfortably. When she was placed on p.o. clindamycin from IV, she had a day of loose bowel movements in approximately 4 total. At that point, she was placed on probiotics and her diarrhea resolved. By the time of discharge, she completed 7 days of her antibiotic treatment with clindamycin and 5 days of antibiotic treatment with azithromycin. At discharge, she is not recommended to continue any antibiotics. We held several discussions with the patient and the patient's family. During the patient's stay in [place], her family was planning to stay on vacation in [place], and the patient was planning to originally fly back to [place] with a layover at [place]. I spoke with the patient and the patient's family how it would be more comfortable for the patient to travel in the car especially right now when she is oxygen dependent and is deconditioned after the hospital stay. The patient's family arranged a car service for the patient to pick her up from the hospital and drive her directly to her home in [place]. The patient is recommended to follow up with her primary care provider in 4 to 7 days after discharge. LABORATORY DATA DURING THE HOSPITAL STAY: Included: On 12/04/16, sodium 136, potassium 4.7, chloride of 103, carbon dioxide 26, BUN 32, creatinine 1.1. White blood cell count of 12.5, hemoglobin of 10.4, hematocrit of 32, and platelets of 350. The patient's INR last obtained on 12/04/13 was 2.2. Most recent portable chest x-ray obtained on 12/02/16. Impression: "Mild interval involvement of the left lung alveolar consolidation concerning for pneumonia." PHYSICAL EXAMINATION AT THE TIME OF DISCHARGE: Blood pressure of 133/47, heart rate of 72 and regular, respiratory rate of 20, oxygen saturation 96% on 3 L of oxygen nasal cannula, temperature of 98.1. General: The patient is a very pleasant 86-year-old male, who is not in acute distress. Alert, awake and oriented x3. HEENT: Head is atraumatic, normocephalic. Eyes: Pupils equal, reactive to light and accommodation. Oropharynx clear. Mucosa moist. Neck: Supple. No JVD. No bruits bilaterally. Cardiovascular: Regular rate and rhythm. No murmurs. Respiratory: Clear to auscultation bilaterally. Abdomen: Soft, nontender. Bowel sounds present in all 4 quadrants. Extremities: There are chronic appearing venostasis changes with skin hardening and venostasis skin discoloration. There is trace edema bilaterally. Neuro Evaluation: Speech clear. Cranial nerves II through XII grossly intact. Motor strength is 5/5 bilaterally. Please note that this is a short summary of the patient's hospital stay. Please refer to further medical records for details. TIME SPENT: Approximately 40 minutes were spent on the patient's discharge. CC: Dr. Chris Meléndez* [id number]/CPS #: [id number] AMAURY
== END 2016-12-08 13:00 | disposition home or self-care (01) | DRG 177 ==
LOC: ED 07:32 → ICU 10:15 → ED 10:59 → MEDTELE 12-05 12:12
PROVIDERS: ADMIT Hospitalist; ATTEND Internal Medicine
DX: J69.0 Pneumonitis due to inhalation of food and vomit (principal); J96.01 Acute respiratory failure with hypoxia; S80.12XA Contusion of left lower leg, initial encounter; W18.30XA Fall on same level, unspecified, initial encounter; I48.2 Chronic atrial fibrillation; I10 Essential (primary) hypertension; K21.9 Gastro-esophageal reflux disease without esophagitis; M41.9 Scoliosis, unspecified; Z86.718 Personal history of other venous thrombosis and embolism; Y92.9 Unspecified place or not applicable; Z79.01 Long term (current) use of anticoagulants; Z99.81 Dependence on supplemental oxygen; Z88.0 Allergy status to penicillin; Z88.2 Allergy status to sulfonamides; Z88.8 Allergy status to other drugs, medicaments and biological substances
CPT/HCPCS: 36415; 36600; 71010; 80048; 80053; 81003; 81015; 82553; 82803; 83605; 83880; 84484; 85025; 85027; 85379; 85610; 85730; 86140; 87040; 87641; 87899; 93005; 94640; 94760; A9270-GY; G8996-GN-CH; G8997-GN-CH; G8998-GN-CH; J0456; J2405